=== PATIENT | female | born 1965 | race Caucasian/White ===

== ENCOUNTER 2019-06-10 10:22 | Emergency (ER) | payer OTHER, SELFPAY ==
[2019-06-10 10:31] VITALS: BP 118/58; PULSE 52; RESP 16; TEMP 36.8; O2SAT 99; BMI 28.2
--- NOTE | 2019-06-10 11:15 | DI.CT.S_ITS ---
PROCEDURE: CT ABDOMEN PELVIS W CON INDICATIONS: LLQ, RLQ, and RUQ tenderness worsening x 1 week TECHNIQUE: After the administration of oral and intravenous contrast, 5 mm thick sections acquired from the diaphragms to the symphysis. 5 mm thick coronal and sagittal reformats were performed. For radiation dose reduction, the following was used: automated exposure control, adjustment of mA and/or kV according to patient size. COMPARISON: [facility], , ABDOMEN COMPLETE, 03/28/2015, 9:44. FINDINGS: Image quality: Diagnostic. ABDOMEN: Lung bases: Lung bases are clear. Heart size is normal. Solid organs: The liver is measuring within the upper limits of normal for size. No focal liver lesions are evident. The gallbladder is not distended or definitely inflamed. There is no intrahepatic or extrahepatic biliary dilatation. The pancreas is within normal limits. The spleen is enlarged and measures up to 15.3 cm in craniocaudal dimension. The kidneys are normal in size. There is no hydronephrosis. The adrenals are unremarkable. Peritoneum and bowel: The stomach is unremarkable. The small bowel loops are nondilated. Moderate residual stool is seen within the proximal colon. What is felt to represent the appendix is normal in size. There is no free fluid, loculated fluid collection or free air. Nodes and vessels: No retroperitoneal or mesenteric adenopathy. Aorta and inferior vena cava are normal in caliber. Aortic and iliac artery atherosclerosis is present. No aneurysms or occlusions. Bones: No acute fractures or suspicious osseous lesions are identified. Moderate to severe degenerative changes of the lumbar spine are present. PELVIS: Genitourinary: Bladder wall thickness is normal. The uterus appears to be surgically absent. The ovaries are not definitely seen and may either be atrophic or surgically absent. Miscellaneous: No inguinal hernias or adenopathy. There may be a trace amount of free fluid within the pelvis. No loculated fluid collections or free air is evident. Bones: No suspicious bony lesions. No acute pelvic fractures are evident. IMPRESSION: 1. No acute process is evident within the abdomen or pelvis. 2. Moderate splenomegaly is of uncertain etiology. Clinical correlation is recommended to exclude a potential infiltrative process. 3. Borderline hepatomegaly. 4. Possible mild constipation. No bowel obstruction. Dictated by: Hilario Roa M.D. on 06/10/2019 at 12:26 Approved by: Hilario Roa M.D. on 06/10/2019 at 12:30
--- NOTE | 2019-06-10 11:17 | DI.RAD.S_ITS ---
PROCEDURE: XR CHEST 1V INDICATIONS: Shortness of breath TECHNIQUE: One view of the chest was acquired. COMPARISON: None. FINDINGS: Surgical changes and devices: None. Lungs and pleura: Lungs are clear. No pleural effusions or pneumothorax. Mediastinum: Mediastinal contours appear normal. Heart size is normal. Bones and chest wall: No suspicious bony lesions. Overlying soft tissues appear unremarkable. IMPRESSION: No acute cardiopulmonary abnormalities or focal airspace disease. Dictated by: Darek Bowie M.D. on 06/10/2019 at 11:52 Approved by: Darek Bowie M.D. on 06/10/2019 at 11:52
--- NOTE | 2019-06-10 11:26 | ED_ITS ---
HPI - Female Genitourinary <Joanie SainzGEOFF - Last Filed: 06/10/19 22:36> General Chief complaint: Urogenital-Female Stated complaint: upper left abdominal pain Time Seen by Provider: 06/10/19 10:56 Source: patient Mode of arrival: Ambulatory History of Present Illness HPI Narrative: 53-year-old female with a history of hypertension, diabetes, esophageal ulcer, presents emergency department complaining of abdominal pain that has been worsening over the past week. She states she was initially seen for a urinary tract infection and treated with Macrobid last week. She states he had been having dysuria, frequency, blood in urine, and abdominal pain for over a month. However, patient states she now has right lower quadrant, left lower quadrant, and right upper quadrant abdominal pain. She also has lower lumbar pain that has developed over the past 24 hours. Patient states she also has intermittent shortness of breath that occurs with nausea, this has been occurring over the past few weeks. She denies any aggravating or alleviating symptoms to her shortness of breath such as activity, or other concerns. Patient states she previously smoked for 20 years, quit 10 years ago, and last month started smoking again, she states she smokes about half a pack a day.She reports associated nausea. She denies vomiting, diarrhea, fevers, constipation, chest pain, dizziness, or other concerns. Related Data Home Medications Medication Instructions Recorded Confirmed alprazolam 0.5 mg PO QPM 06/10/19 06/10/19 amlodipine 5 mg PO QPM 06/10/19 06/10/19 citalopram 40 mg PO DAILY 06/10/19 06/10/19 gabapentin 1,200 mg PO QAM 06/10/19 06/10/19 gabapentin 1,800 mg PO BEDTIME 06/10/19 06/10/19 levothyroxine 175 mcg PO DAILY 06/10/19 06/10/19 metformin 500 mg PO BID 06/10/19 06/10/19 methocarbamol 500 mg PO Q4H PRN 06/10/19 06/10/19 metoprolol tartrate 100 mg PO BID 06/10/19 06/10/19 nitrofurantoin monohyd/m-cryst 100 mg PO BID 06/10/19 06/10/19 pantoprazole 40 mg PO DAILY 06/10/19 06/10/19 triamterene-hydrochlorothiazid 1 tab PO DAILY 06/10/19 06/10/19 zolpidem 10 mg PO BEDTIME 06/10/19 06/10/19 Previous Rx's Medication Instructions Recorded cephalexin 500 mg PO BID 14 Days #28 cap 06/10/19 ondansetron 4 mg PO Q8H #10 tab 06/10/19 tramadol 50 mg PO Q8H PRN #10 tab 06/10/19 Allergies Allergy/AdvReac Type Severity Reaction Status Date / Time Penicillins Allergy Verified 06/10/19 10:30 Review of Systems <GEOFF Gonzalez - Last Filed: 06/10/19 22:36> Review of Systems Narrative: REVIEW OF SYSTEMS: GENERAL: Denies fever, chills, malaise, or wt. loss. HENT: No head trauma, sore throat, or dysphagia. EYES: No loss of vision, double vision, eye pain, or irritation. CARDIOVASCULAR: No chest pain, palpitations, or orthopnea. RESPIRATORY: No shortness of breath or cough. GASTROINTESTINAL: Complains of abdominal pain, see HPI GENITOURINARY: Complains of dysuria, see HPI. MUSCULOSKELETAL: No pain, weakness, or trauma. INTEGUMENTARY: No rash, lesions, or pruritus. NEURO: No numbness, tingling, memory loss, confusion, or headaches. PSYCH: No behavior or mood changes. Patient History <GEOFF Gonzalez - Last Filed: 06/10/19 22:36> Medical History Hypertension (Acute) tobacco type: cigarettes Exam <GEOFF Gonzalez - Last Filed: 06/10/19 22:36> Initial Vital Signs Initial Vital Signs: Vital Signs Temperature 98.3 F 06/10/19 10:31 Pulse Rate 52 L 06/10/19 10:31 Respiratory Rate 16 06/10/19 10:31 Blood Pressure 118/58 L 06/10/19 10:31 Pulse Oximetry 99 06/10/19 10:31 PHYSICAL EXAMINATION: GENERAL: Well groomed, alert, and cooperative. Answers questions promptly and appropriately. Vital signs noted. HENT: Normocephalic, atraumatic. Hearing intact. Oral mucosa is pink and moist. Oropharynx without erythema EYES: PERRLA. conjunctiva pink, sclera white, no periorbital swelling. CARDIOVASCULAR: S1 and S2 sounds normal. Regular rate and rhythm, no murmurs, clicks, or bruits. No pedal edema. RESPIRATORY: Normal respiratory rate, trachea midline, airway patent. No stridor, nasal flaring or accessory muscle use. Lungs are clear in all yskes without wheeze, rhonchi, or crackles. GASTROINTESTINAL: Bowel sounds normoactive. Abdomen is soft, tenderness to left lower quadrant, right lower quadrant, and right upper quadrant pain. Negative Marco A sign. No rebound tenderness No organomegaly, no palpable masses. GENITALURINARY: Bilateral flank tenderness. MUSCULOSKELETAL: Normal gait and coordination. Equal tone and mass bilaterally. EXTREMITIES: CMS intact, no pedal edema. SKIN: Warm, dry, soft, appropriate color for ethnicity. No lesions, rashes, or wounds to visualized areas. NEURO: Alert and Oriented X 3. Good coordination. No ataxia, or sensory deficits, or cognitive issues. PSYCH: Appropriate affect and mood. <Hernán Suero MD - Last Filed: 06/11/19 11:20> Initial Vital Signs Initial Vital Signs: Vital Signs Temperature 98.3 F 06/10/19 10:31 Pulse Rate 52 L 06/10/19 10:31 Respiratory Rate 16 06/10/19 10:31 Blood Pressure 118/58 L 06/10/19 10:31 Pulse Oximetry 99 06/10/19 10:31 Course <GEOFF Gonzalez - Last Filed: 06/10/19 22:36> Course Course Narrative: Patient reported improved symptoms after administration of fluids and pain medication. Orders Ordered: Discontinued Medications Sodium Chloride (Normal Saline 0.9%) 1,000 mls @ 1,000 mls/hr IV BOLUS ONE Stop: 06/10/19 12:15 Last Infusion: 06/10/19 14:18 Dose: 0 mls/hr Documented by: Admin: 06/10/19 11:50 Dose: 1,000 mls/hr Documented by: JANA Ketorolac Tromethamine (Toradol) 30 mg IV NOW ONE Stop: 06/10/19 13:39 Last Admin: 06/10/19 13:48 Dose: 30 mg Documented by: MEISENB Vital Signs Vital signs: Vital Signs - 8 hr 06/10/19 10:31 06/10/19 11:54 Temperature 98.3 F Pulse Rate 52 L 56 L Respiratory Rate 16 18 Blood Pressure 118/58 L Blood Pressure [Right Arm] 127/63 Pulse Oximetry 99 98 <Hernán Suero MD - Last Filed: 06/11/19 11:20> Orders Ordered: Discontinued Medications Sodium Chloride (Normal Saline 0.9%) 1,000 mls @ 1,000 mls/hr IV BOLUS ONE Stop: 06/10/19 12:15 Last Infusion: 06/10/19 14:18 Dose: 0 mls/hr Documented by: GRADYSENDanny Admin: 06/10/19 11:50 Dose: 1,000 mls/hr Documented by: JANA Ketorolac Tromethamine (Toradol) 30 mg IV NOW ONE Stop: 06/10/19 13:39 Last Admin: 06/10/19 13:48 Dose: 30 mg Documented by: JANA Vital Signs Vital signs: Vital Signs - 8 hr 06/10/19 10:31 06/10/19 11:54 Temperature 98.3 F Pulse Rate 52 L 56 L Respiratory Rate 16 18 Blood Pressure 118/58 L Blood Pressure [Right Arm] 127/63 Pulse Oximetry 99 98 MDM - Female Genitourinary <GEOFF Gonzalez - Last Filed: 06/10/19 22:36> Medical Records Attestation: I reviewed the patient's medical records. Lab Data Attestation: I reviewed the patient's lab results. Result diagrams: 06/10/19 12:10 06/10/19 11:34 Labs: Lab Results 06/10/19 06/10/19 06/10/19 Range/Units 11:34 11:34 11:34 WBC (4.5-11.0) X10^3/uL RBC (4.0-5.2) X10^6/uL Hgb (12.0-16.0) g/dL Hct (36-46) % MCV (80-100) fL MCH (26-34) PG MCHC (30-36) % RDW (11.6-14.8) % Plt Count (150-400) X10^3/uL Neut % (Auto) (50-75) % Lymph % (Auto) (25-40) % [place] % (Auto) (3-14) % Eos % (Auto) (2-4) % Baso % (Auto) (0-2) % Neut # (Auto) (9721-2910) /uL Lymph # (Auto) (1632-0507) /uL [place] # (Auto) (0-900) /uL Eos # (Auto) (0-450) /uL Baso # (Auto) (0-100) /uL PT 11.3 (10.1-12.7) SECONDS INR 1.0 (0.9-1.3) APTT 20 L (26.4-36.2) SECONDS Sodium 138 (137-145) mmol/L Potassium 3.6 (3.4-5.1) mmol/L Chloride 99 (98-107) mmol/L Carbon Dioxide 30 (22-32) mmol/L BUN 20 H (7-17) mg/dL Creatinine 0.80 (0.52-1.04) mg/dL Estimated GFR > 60.0 (>60) mL/min BUN/Creatinine Ratio 25.0 H (6-22) Glucose 96 (70-100) mg/dL Calcium 10.2 (8.4-10.2) mg/dL Total Bilirubin 0.7 (0.2-1.3) mg/dL AST 35 (14-36) IU/L ALT 23 (<35) IU/L Alkaline Phosphatase 55 (38-126) U/L Total Creatine Kinase 52 (30-135) U/L CK-MB (CK-2) TNP CK-MB (CK-2) Rel Index TNP Troponin I < 0.012 (0.01-0.034) ng/mL Total Protein 8.7 H (6.3-8.2) g/dL Albumin 4.8 (3.5-5.0) g/dL Globulin 3.9 (1.7-4.1) g/dL Albumin/Globulin Ratio 1.2 (1.0-2.8) Lipase 144 (23-300) U/L Urine Color Urine Appearance Urine pH (4.5-8.0) Ur Specific [place] (1.000-1.035) Urine Protein (Negative) Urine Glucose (UA) (Negative) g/dL Urine Ketones (NEGATIVE) Urine Occult Blood (Negative) Urine Nitrate (Negative) Urine Bilirubin (NEGATIVE) Urine Urobilinogen (0.2) E.U./dL Ur Leukocyte Esterase (NEGATIVE) Urine RBC (0-5/HPF) Urine WBC (0-5/HPF) Ur Squamous Epith Cells (0-5/HPF) Urine Bacteria (None) Ur Culture Indicated? 06/10/19 06/10/19 Range/Units 11:34 12:10 WBC 4.8 (4.5-11.0) X10^3/uL RBC 4.30 (4.0-5.2) X10^6/uL Hgb 13.2 (12.0-16.0) g/dL Hct 38.4 (36-46) % MCV 89.4 (80-100) fL MCH 30.6 (26-34) PG MCHC 34.3 (30-36) % RDW 14.3 (11.6-14.8) % Plt Count 161 (150-400) X10^3/uL Neut % (Auto) 46.6 L (50-75) % Lymph % (Auto) 26.6 (25-40) % [place] % (Auto) 7.4 (3-14) % Eos % (Auto) 18.5 H (2-4) % Baso % (Auto) 0.9 (0-2) % Neut # (Auto) 2200 (5035-3580) /uL Lymph # (Auto) 1300 (8076-7602) /uL [place] # (Auto) 400 (0-900) /uL Eos # (Auto) 900 H (0-450) /uL Baso # (Auto) 0 (0-100) /uL PT (10.1-12.7) SECONDS INR (0.9-1.3) APTT (26.4-36.2) SECONDS Sodium (137-145) mmol/L Potassium (3.4-5.1) mmol/L Chloride (98-107) mmol/L Carbon Dioxide (22-32) mmol/L BUN (7-17) mg/dL Creatinine (0.52-1.04) mg/dL Estimated GFR (>60) mL/min BUN/Creatinine Ratio (6-22) Glucose (70-100) mg/dL Calcium (8.4-10.2) mg/dL Total Bilirubin (0.2-1.3) mg/dL AST (14-36) IU/L ALT (<35) IU/L Alkaline Phosphatase (38-126) U/L Total Creatine Kinase (30-135) U/L CK-MB (CK-2) CK-MB (CK-2) Rel Index Troponin I (0.01-0.034) ng/mL Total Protein (6.3-8.2) g/dL Albumin (3.5-5.0) g/dL Globulin (1.7-4.1) g/dL Albumin/Globulin Ratio (1.0-2.8) Lipase (23-300) U/L Urine Color Yellow Urine Appearance Clear Urine pH 6.5 (4.5-8.0) Ur Specific [place] 1.010 (1.000-1.035) Urine Protein Negative (Negative) Urine Glucose (UA) Negative (Negative) g/dL Urine Ketones 1+ H (NEGATIVE) Urine Occult Blood Negative (Negative) Urine Nitrate Negative (Negative) Urine Bilirubin Negative (NEGATIVE) Urine Urobilinogen 0.2 (0.2) E.U./dL Ur Leukocyte Esterase Negative (NEGATIVE) Urine RBC 0-1/hpf (0-5/HPF) Urine WBC 1-5/hpf (0-5/HPF) Ur Squamous Epith Cells 0-1 /hpf (0-5/HPF) Urine Bacteria Few (2-10) H (None) Ur Culture Indicated? Cult not indicated Point of Care Testing Test Results Negative Urine Dip Bedside Urine Glucose Negative Bedside Urine Bilirubin - Negative Bedside Urine Ketone + 15 Urine Specific [place] 1.015 Bedside Urine Occult Blood - Negative Bedside Urine pH 6.0 Bedside Urine Protein - Negative Bedside Urine Urobilinogen - Negative Bedside Urine Nitrite - Negative Bedside Urine Leukocytes +/- 15 Esterase Imaging Data Chest x-ray: Radiologist's Impression: [address] [address] XRay Report Signed Patient: Olga Rob KMR#: [id number] : 1965Acct:[id number] Age/Sex: 53 / FDate of Service: 06/10/19 Loc: ED Accession Number: [id number] Procedure: XR chest 1V Ordering Provider: Joanie Sainz PROCEDURE: XR CHEST 1V INDICATIONS: Shortness of breath TECHNIQUE: One view of the chest was acquired. COMPARISON: None. FINDINGS: Surgical changes and devices: None. Lungs and pleura: Lungs are clear. No pleural effusions or pneumothorax. Mediastinum: Mediastinal contours appear normal. Heart size is normal. Bones and chest wall: No suspicious bony lesions. Overlying soft tissues appear unremarkable. IMPRESSION: No acute cardiopulmonary abnormalities or focal airspace disease. Dictated by: Darek Bowie M.D. on 06/10/2019 at 11:52 Approved by: Darek Bowie M.D. on 06/10/2019 at 11:52 CT scan - abdomen/pelvis: Radiologist's Impression: [place] [address] CT Scan Report Signed Patient: Olga Rob KMR#: [id number] : 1965Acct:[id number] Age/Sex: 53 / FDate of Service: 06/10/19 Loc: ED Accession Number: [id number] Procedure: CT abdomen pelvis w con Ordering Provider: Joanie Sainz PROCEDURE: CT ABDOMEN PELVIS W CON INDICATIONS: LLQ, RLQ, and RUQ tenderness worsening x 1 week TECHNIQUE: After the administration of oral and intravenous contrast, 5 mm thick sections acquired from the diaphragms to the symphysis. 5 mm thick coronal and sagittal reformats were performed. For radiation dose reduction, the following was used: automated exposure control, adjustment of mA and/or kV according to patient size. COMPARISON: [facility], , ABDOMEN COMPLETE, 03/28/2015, 9:44. FINDINGS: Image quality: Diagnostic. ABDOMEN: Lung bases: Lung bases are clear. Heart size is normal. Solid organs: The liver is measuring within the upper limits of normal for size. No focal liver lesions are evident. The gallbladder is not distended or definitely inflamed. There is no intrahepatic or extrahepatic biliary dilatation. The pancreas is within normal limits. The spleen is enlarged and measures up to 15.3 cm in craniocaudal dimension. The kidneys are normal in size. There is no hydronephrosis. The adrenals are unremarkable. Peritoneum and bowel: The stomach is unremarkable. The small bowel loops are nondilated. Moderate residual stool is seen within the proximal colon. What is felt to represent the appendix is normal in size. There is no free fluid, loculated fluid collection or free air. Nodes and vessels: No retroperitoneal or mesenteric adenopathy. Aorta and inferior vena cava are normal in caliber. Aortic and iliac artery atherosclerosis is present. No aneurysms or occlusions. Bones: No acute fractures or suspicious osseous lesions are identified. Moderate to severe degenerative changes of the lumbar spine are present. PELVIS: Genitourinary: Bladder wall thickness is normal. The uterus appears to be surgically absent. The ovaries are not definitely seen and may either be atrophic or surgically absent. Miscellaneous: No inguinal hernias or adenopathy. There may be a trace amount of free fluid within the pelvis. No loculated fluid collections or free air is evident. Bones: No suspicious bony lesions. No acute pelvic fractures are evident. IMPRESSION: 1. No acute process is evident within the abdomen or pelvis. 2. Moderate splenomegaly is of uncertain etiology. Clinical correlation is recommended to exclude a potential infiltrative process. 3. Borderline hepatomegaly. 4. Possible mild constipation. No bowel obstruction. Dictated by: Hilario Roa M.D. on 06/10/2019 at 12:26 Approved by: Hilario Roa M.D. on 06/10/2019 at 12:30 [facility] Narrative Medical decision making narrative: Presents to emergency department for complains of flank pain after being treated for a UTI. Decreased concern for renal calculi due to CT scan without visualization of renal calculi, kidney stones, and no blood in urine. Less likely acute abdominal etiology due to CT scan without acute changes, laboratory work within normal limits, and improved pain after administration of fluids and Toradol. I am concerned that patient may have developed pyelonephritis due to flank pain and worsening symptoms from her UTI. Patient was originally given Macrobid, today patient was switched to cephalexin to cover for pyelonephritis. Less concern for sepsis due to lack of systemic symptoms such as fever or tachycardia. Patient was encouraged to follow up with her primary care provider in 1-2 weeks for further evaluation. Return precautions given. <Hernán Suero MD - Last Filed: 06/11/19 11:20> Lab Data Labs: Lab Results 06/10/19 06/10/19 06/10/19 Range/Units 11:34 11:34 11:34 WBC (4.5-11.0) X10^3/uL RBC (4.0-5.2) X10^6/uL Hgb (12.0-16.0) g/dL Hct (36-46) % MCV (80-100) fL MCH (26-34) PG MCHC (30-36) % RDW (11.6-14.8) % Plt Count (150-400) X10^3/uL Neut % (Auto) (50-75) % Lymph % (Auto) (25-40) % [place] % (Auto) (3-14) % Eos % (Auto) (2-4) % Baso % (Auto) (0-2) % Neut # (Auto) (0265-4823) /uL Lymph # (Auto) (7095-3148) /uL [place] # (Auto) (0-900) /uL Eos # (Auto) (0-450) /uL Baso # (Auto) (0-100) /uL PT 11.3 (10.1-12.7) SECONDS INR 1.0 (0.9-1.3) APTT 20 L (26.4-36.2) SECONDS Sodium 138 (137-145) mmol/L Potassium 3.6 (3.4-5.1) mmol/L Chloride 99 (98-107) mmol/L Carbon Dioxide 30 (22-32) mmol/L BUN 20 H (7-17) mg/dL Creatinine 0.80 (0.52-1.04) mg/dL Estimated GFR > 60.0 (>60) mL/min BUN/Creatinine Ratio 25.0 H (6-22) Glucose 96 (70-100) mg/dL Calcium 10.2 (8.4-10.2) mg/dL Total Bilirubin 0.7 (0.2-1.3) mg/dL AST 35 (14-36) IU/L ALT 23 (<35) IU/L Alkaline Phosphatase 55 (38-126) U/L Total Creatine Kinase 52 (30-135) U/L CK-MB (CK-2) TNP CK-MB (CK-2) Rel Index TNP Troponin I < 0.012 (0.01-0.034) ng/mL Total Protein 8.7 H (6.3-8.2) g/dL Albumin 4.8 (3.5-5.0) g/dL Globulin 3.9 (1.7-4.1) g/dL Albumin/Globulin Ratio 1.2 (1.0-2.8) Lipase 144 (23-300) U/L Urine Color Urine Appearance Urine pH (4.5-8.0) Ur Specific [place] (1.000-1.035) Urine Protein (Negative) Urine Glucose (UA) (Negative) g/dL Urine Ketones (NEGATIVE) Urine Occult Blood (Negative) Urine Nitrate (Negative) Urine Bilirubin (NEGATIVE) Urine Urobilinogen (0.2) E.U./dL Ur Leukocyte Esterase (NEGATIVE) Urine RBC (0-5/HPF) Urine WBC (0-5/HPF) Ur Squamous Epith Cells (0-5/HPF) Urine Bacteria (None) Ur Culture Indicated? 06/10/19 06/10/19 Range/Units 11:34 12:10 WBC 4.8 (4.5-11.0) X10^3/uL RBC 4.30 (4.0-5.2) X10^6/uL Hgb 13.2 (12.0-16.0) g/dL Hct 38.4 (36-46) % MCV 89.4 (80-100) fL MCH 30.6 (26-34) PG MCHC 34.3 (30-36) % RDW 14.3 (11.6-14.8) % Plt Count 161 (150-400) X10^3/uL Neut % (Auto) 46.6 L (50-75) % Lymph % (Auto) 26.6 (25-40) % [place] % (Auto) 7.4 (3-14) % Eos % (Auto) 18.5 H (2-4) % Baso % (Auto) 0.9 (0-2) % Neut # (Auto) 2200 (1349-4865) /uL Lymph # (Auto) 1300 (1838-4113) /uL [place] # (Auto) 400 (0-900) /uL Eos # (Auto) 900 H (0-450) /uL Baso # (Auto) 0 (0-100) /uL PT (10.1-12.7) SECONDS INR (0.9-1.3) APTT (26.4-36.2) SECONDS Sodium (137-145) mmol/L Potassium (3.4-5.1) mmol/L Chloride (98-107) mmol/L Carbon Dioxide (22-32) mmol/L BUN (7-17) mg/dL Creatinine (0.52-1.04) mg/dL Estimated GFR (>60) mL/min BUN/Creatinine Ratio (6-22) Glucose (70-100) mg/dL Calcium (8.4-10.2) mg/dL Total Bilirubin (0.2-1.3) mg/dL AST (14-36) IU/L ALT (<35) IU/L Alkaline Phosphatase (38-126) U/L Total Creatine Kinase (30-135) U/L CK-MB (CK-2) CK-MB (CK-2) Rel Index Troponin I (0.01-0.034) ng/mL Total Protein (6.3-8.2) g/dL Albumin (3.5-5.0) g/dL Globulin (1.7-4.1) g/dL Albumin/Globulin Ratio (1.0-2.8) Lipase (23-300) U/L Urine Color Yellow Urine Appearance Clear Urine pH 6.5 (4.5-8.0) Ur Specific [place] 1.010 (1.000-1.035) Urine Protein Negative (Negative) Urine Glucose (UA) Negative (Negative) g/dL Urine Ketones 1+ H (NEGATIVE) Urine Occult Blood Negative (Negative) Urine Nitrate Negative (Negative) Urine Bilirubin Negative (NEGATIVE) Urine Urobilinogen 0.2 (0.2) E.U./dL Ur Leukocyte Esterase Negative (NEGATIVE) Urine RBC 0-1/hpf (0-5/HPF) Urine WBC 1-5/hpf (0-5/HPF) Ur Squamous Epith Cells 0-1 /hpf (0-5/HPF) Urine Bacteria Few (2-10) H (None) Ur Culture Indicated? Cult not indicated Point of Care Testing Test Results Negative Urine Dip Bedside Urine Glucose Negative Bedside Urine Bilirubin - Negative Bedside Urine Ketone + 15 Urine Specific [place] 1.015 Bedside Urine Occult Blood - Negative Bedside Urine pH 6.0 Bedside Urine Protein - Negative Bedside Urine Urobilinogen - Negative Bedside Urine Nitrite - Negative Bedside Urine Leukocytes +/- 15 Esterase Discharge Plan Departure Patient Disposition: Home Clinical Impression: Pyelonephritis Discharge Date/Time: 06/10/19 14:59 Instructions: DI for Kidney Infection Activity Restrictions/Additional Instructions: Thank you for entrusting me with your care today. As discussed, your CT shows a hepatospleenomegaly. Your labs are non-remarkable. However, your urine showed possible infection. And concerned that this infection may have spread to your kidneys. Please discontinue your current antibiotic, nitrofurantoin. Please start the antibiotic I prescribed each day. I have also prescribed you medication, and have given you tramadol instead of toradol as Toradol is excreted through your kidneys. You have been prescribed a narcotic medication, this medication can make you drowsy. Do not drive while using this medication or perform activities that require mental alertness. These medications can also make you constipated, please use [id number] docusate sodium as needed for constipation. Make an appointment with your primary care provider in 1 week for re-evaluation. Return emergency department for new or worsening symptoms such as high fevers, uncontrollable vomiting, chest pain, shortness of breath or other concerns. Prescriptions: New cephalexin 500 mg capsule 500 mg PO BID 14 Days Qty: 28 RF: 0 ondansetron 4 mg tablet,disintegrating 4 mg PO Q8H Qty: 10 RF: 0 tramadol 50 mg tablet 50 mg PO Q8H PRN (Reason: pain) Qty: 10 RF: 0 No Action methocarbamol 500 mg tablet 500 mg PO Q4H PRN (Reason: Spasms) RF: 0 metformin 500 mg tablet 500 mg PO BID RF: 0 levothyroxine 175 mcg tablet 175 mcg PO DAILY RF: 0 citalopram 40 mg tablet 40 mg PO DAILY RF: 0 metoprolol tartrate 100 mg tablet 100 mg PO BID RF: 0 amlodipine 5 mg tablet 5 mg PO QPM RF: 0 alprazolam 0.25 mg tablet 0.5 mg PO QPM RF: 0 pantoprazole 40 mg tablet,delayed release (DR/EC) 40 mg PO DAILY RF: 0 triamterene-hydrochlorothiazid 37.5-25 mg tablet 1 tab PO DAILY RF: 0 zolpidem 10 mg tablet 10 mg PO BEDTIME RF: 0 nitrofurantoin monohyd/m-cryst 100 mg capsule 100 mg PO BID RF: 0 gabapentin 600 mg Tablet 1,800 mg PO BEDTIME RF: 0 gabapentin 600 mg Tablet 1,200 mg PO QAM RF: 0 Referrals: Curt Alcantar MD [Primary Care Provider] -
[2019-06-10] MEDS: SODIUM CHLORIDE 0.9% 1,000 ML 1000 ML IV (11:50)
[2019-06-10 11:54] VITALS: BP 127/63; PULSE 56; RESP 18; O2SAT 98
[2019-06-10 12:03] LABS: PTT Partial Thromboplastin Tim 20 SECONDS (26.4-36.2)
[2019-06-10 12:06] LABS: Alanine Aminotransferase 23 IU/L (<35); Albumin 4.8 g/dL (3.5-5.0); Albumin Globulin Ratio 1.2 (1.0-2.8); Alkaline Phosphatase 55 U/L (38-126); Aspartate Aminotransferase 35 IU/L (14-36); Bilirubin Total 0.7 mg/dL (0.2-1.3); Blood Urea Nitrogen 20 mg/dL (7-17); Calcium 10.2 mg/dL (8.4-10.2); Carbon Dioxide 30 mmol/L (22-32); Chloride 99 mmol/L (98-107); Creatine Kinase 52 U/L (30-135); Estimated Glomerular Filt Rate > 60.0 mL/min (>60); Globulin 3.9 g/dL (1.7-4.1); Glucose 96 mg/dL (70-100); HEMOLYSIS < 15 (0-50); Lipase 144 U/L (23-300); Potassium 3.6 mmol/L (3.4-5.1); Prothrombin Time 11.3 SECONDS (10.1-12.7); Sodium 138 mmol/L (137-145); Total Protein 8.7 g/dL (6.3-8.2)
[2019-06-10 12:17] LABS: Troponin I < 0.012 ng/mL (0.01-0.034)
[2019-06-10 12:18] LABS: Add Manual Diff / Slide Review NO; Basophils Absolute Auto 0 /uL (0-100); Basophils Percent Auto 0.9 % (0-2); Eosinophils Absolute Auto 900 /uL (0-450); Eosinophils Percent Auto 18.5 % (2-4); Hematocrit 38.4 % (36-46); Hemoglobin 13.2 g/dL (12.0-16.0); Lymphocytes Absolute Auto 1300 /uL (1100-4500); Lymphocytes Percent Auto 26.6 % (25-40); Mean Corpuscular HGB Conc 34.3 % (30-36); Mean Corpuscular Hemoglobin 30.6 PG (26-34); Mean Corpuscular Volume 89.4 fL (80-100); Monocytes Absolute Auto 400 /uL (0-900); Monocytes Percent Auto 7.4 % (3-14); Neutrophils Absolute Auto 2200 /uL (1500-7000); Neutrophils Percent Auto 46.6 % (50-75); Platelet Count 161 X10^3/uL (150-400); Red Cell Distribution Width 14.3 % (11.6-14.8); White Blood Cell Count 4.8 X10^3/uL (4.5-11.0)
[2019-06-10] MEDS: KETOROLAC 60 MG/2 ML VIAL 30 MG IV (13:48)
[2019-06-10 13:49] VITALS: BP 129/61; PULSE 67; RESP 18; TEMP 37.2; O2SAT 97
[2019-06-10 14:29] LABS: Appearance Urine UA CLEAR; Bilirubin Urine UA NEGATIVE (NEGATIVE); Color Urine UA YELLOW; Glucose Urine UA NEGATIVE (Negative); Ketones Urine UA 1+ (NEGATIVE); Leukocyte Esterase Urine UA NEGATIVE (NEGATIVE); Nitrite Urine UA NEGATIVE (Negative); Occult Blood Urine UA NEGATIVE (Negative); Protein Urine UA NEGATIVE (Negative); Urobilinogen Urine UA 0.2 E.U./dL (0.2)
[2019-06-10 14:49] LABS: pH Urine UA 6.5 (4.5-8.0)
[2019-06-10 14:50] LABS: Bacteria Urine Few (2-10); Culture Indicated Urine Cult Not Indicated; RBC Urine 0-1/HPF (0-5/HPF); Squamous Epithelial Cell Urine 0-1 /HPF (0-5/HPF); WBC Urine 1-5/HPF (0-5/HPF)
== END 2019-06-10 14:59 | disposition home or self-care (01) ==
PROVIDERS: Emergency Medicine; Emergency Provider Nurse Practitioner; Family Provider Family Medicine; PCP Family Medicine
DX: N12 Tubulo-interstitial nephritis, not specified as acute or chronic (principal); R16.1 Splenomegaly, not elsewhere classified; R10.9 Unspecified abdominal pain
CPT/HCPCS: 36415; 71045; 74177; 80053; 81001; 81003; 81025; 82550; 83690; 84484; 85025; 85610; 85730; 93005; 96361; 96374; 99284; 99285; J1885; Q9967

== ENCOUNTER 2019-06-15 14:14 | Emergency (ER) | payer OTHER, SELFPAY ==
[2019-06-15 14:31] VITALS: BP 115/73; PULSE 60; RESP 16; TEMP 36.2; O2SAT 100; BMI 29.0
[2019-06-15 15:36] VITALS: BP 137/68; PULSE 50; RESP 18; O2SAT 99
[2019-06-15 15:39] VITALS: BP 134/68; PULSE 52; O2SAT 100
[2019-06-15 15:40] LABS: Add Manual Diff / Slide Review NO; Basophils Absolute Auto 0 /uL (0-100); Basophils Percent Auto 0.2 % (0-2); Eosinophils Absolute Auto 1500 /uL (0-450); Eosinophils Percent Auto 18.2 % (2-4); Hematocrit 43.7 % (36-46); Hemoglobin 15.1 g/dL (12.0-16.0); Lymphocytes Absolute Auto 3300 /uL (1100-4500); Lymphocytes Percent Auto 39.5 % (25-40); Mean Corpuscular HGB Conc 34.5 % (30-36); Mean Corpuscular Hemoglobin 30.6 PG (26-34); Mean Corpuscular Volume 88.7 fL (80-100); Monocytes Absolute Auto 300 /uL (0-900); Monocytes Percent Auto 3.8 % (3-14); Neutrophils Absolute Auto 3200 /uL (1500-7000); Neutrophils Percent Auto 38.3 % (50-75); Platelet Count 250 X10^3/uL (150-400); Red Blood Cell Count 4.93 X10^6/uL (4.0-5.2); Red Cell Distribution Width 14.8 % (11.6-14.8); White Blood Cell Count 8.3 X10^3/uL (4.5-11.0)
[2019-06-15 15:47] LABS: Prothrombin Time 11.8 SECONDS (10.1-12.7)
[2019-06-15 15:49] LABS: PTT Partial Thromboplastin Tim 35 SECONDS (26.4-36.2)
[2019-06-15 15:51] LABS: Alanine Aminotransferase 26 IU/L (<35); Albumin Globulin Ratio 1.3 (1.0-2.8); Alkaline Phosphatase 69 U/L (38-126); Aspartate Aminotransferase 32 IU/L (14-36); BUN Creatinine Ratio 23.3 (6-22); Bilirubin Total 0.5 mg/dL (0.2-1.3); Blood Urea Nitrogen 14 mg/dL (7-17); Calcium 10.1 mg/dL (8.4-10.2); Carbon Dioxide 29 mmol/L (22-32); Chloride 99 mmol/L (98-107); Estimated Glomerular Filt Rate > 60.0 mL/min (>60); Globulin 3.8 g/dL (1.7-4.1); Glucose 91 mg/dL (70-100); HEMOLYSIS < 15 (0-50); Lipase 141 U/L (23-300); Potassium 3.8 mmol/L (3.4-5.1); Sodium 138 mmol/L (137-145); Total Protein 8.8 g/dL (6.3-8.2)
[2019-06-15 15:53] LABS: Bacteria Urine None Seen; RBC Urine None Seen (0-5/HPF); WBC Urine None Seen (0-5/HPF)
[2019-06-15] MEDS: KETOROLAC 60 MG/2 ML VIAL 15 MG IV (16:00)
[2019-06-15] MEDS: SODIUM CHLORIDE 0.9% 1,000 ML 150 ML IV (16:00)
[2019-06-15 16:01] LABS: Appearance Urine UA CLEAR; Bilirubin Urine UA NEGATIVE (NEGATIVE); Color Urine UA YELLOW; Glucose Urine UA NEGATIVE (Negative); Ketones Urine UA NEGATIVE (NEGATIVE); Leukocyte Esterase Urine UA NEGATIVE (NEGATIVE); Nitrite Urine UA NEGATIVE (Negative); Occult Blood Urine UA NEGATIVE (Negative); Protein Urine UA NEGATIVE (Negative); Urobilinogen Urine UA 0.2 E.U./dL (0.2)
[2019-06-15 16:06] VITALS: BP 145/76; PULSE 54; RESP 18; O2SAT 100
[2019-06-15 16:14] LABS: Culture Indicated Urine Cult Not Indicated; Urine Comments Microscopic Normal
--- NOTE | 2019-06-15 16:16 | DI.US.S_ITS ---
PROCEDURE: US ABDOMEN LIMITED INDICATIONS: LT QUADS PAIN, RECENT CT SHOWED SPLENOMEGALY TECHNIQUE: Real-time focused scanning was performed of the abdomen, with image documentation. COMPARISON: [facility], CT, CT ABDOMEN PELVIS [facility], 06/10/2019, 12:30. FINDINGS: The spleen is enlarged and measures 15.5 cm in craniocaudal dimension. No focal splenic lesions are evident. No perisplenic fluid collections or lacerations are identified. No fluid is seen within the left upper quadrant. The left kidney is normal in size and measures 11.9 cm in length. There is no hydronephrosis or shadowing nephrolithiasis. No cystic or solid renal lesions are appreciated. IMPRESSION: 1. Splenomegaly. 2. No free fluid within the left upper quadrant. Dictated by: Hilario Roa M.D. on 06/15/2019 at 16:23 Approved by: Hilario Roa M.D. on 06/15/2019 at 16:23
[2019-06-15 16:54] LABS: Lactate (Lactic Acid) 0.9 mmol/L (0.7-2.1)
[2019-06-15 17:18] LABS: Procalcitonin < 0.05 ng/mL (<0.5)
--- NOTE | 2019-06-15 17:44 | ED.ABDPAIN ---
HPI - Abdominal Pain <GEOFF Yang - Last Filed: 06/16/19 00:51> General Chief Complaint: Abdominal Pain Stated Complaint: abdominal pain around to back Time Seen by Provider: 06/15/19 15:20 Source: patient Mode of arrival: Ambulatory Limitations: no limitations History of Present Illness HPI narrative: This is a 53-year-old female, current smoker, who presents to ED with significant other with chief complain of bilateral lower back pain, left lower quadrant and left upper quadrant pain. Patient reports no change in characteristic of the pain since last visit. Patient was evaluated at [facility] 5 days ago and was discharged to home with pyelonephritis. Patient reports some chills and subjective fever. Patient has been having urinary symptoms such as dysuria, frequency, hematuria and abdominal pain over a month and initially was treated with Macrobid then which got changed out to Keflex for 14 day course 500 mg b.i.d. dose which patient is currently taking it at this time. Patient reports her discomfort is pretty constant and sharp in character. She has been hydrating well with water and cranberry juice. She reports decreased appetite and 3-4 episodes of diarrhea for last couple of days without blood in stool. Patient is not able to report aggravating or alleviating factors for this discomfort. She had not been taking any Tylenol or Motrin for discomfort and she states was told it is bad for my kidney. Patient did follow-up with her PCP this morning at [facility] with Dr. Alcantar and since patient's discomfort is not improving, she was referred to [facility] for re-evaluation. Patient was told during last visit incidental finding of enlarged spleen. Patient denies recent illness with sore throat or mononucleosis. Patient states she had fallen about 4 months ago and landed on her near left hip area on a radiator but had not follow up with this problem. Patient is wondering if this region is related to her spleen. Related Data Home Medications Medication Instructions Recorded Confirmed alprazolam 0.5 mg PO QPM 06/10/19 06/10/19 amlodipine 5 mg PO QPM 06/10/19 06/15/19 citalopram 40 mg PO DAILY 06/10/19 06/15/19 gabapentin 1,200 mg PO QAM 06/10/19 06/10/19 gabapentin 1,800 mg PO BEDTIME 06/10/19 06/10/19 levothyroxine 175 mcg PO DAILY 06/10/19 06/15/19 metformin 500 mg PO BID 06/10/19 06/15/19 methocarbamol 500 mg PO Q4H PRN 06/10/19 06/15/19 metoprolol tartrate 100 mg PO BID 06/10/19 06/15/19 nitrofurantoin monohyd/m-cryst 100 mg PO BID 06/10/19 06/15/19 pantoprazole 40 mg PO DAILY 06/10/19 06/15/19 triamterene-hydrochlorothiazid 1 tab PO DAILY 06/10/19 06/15/19 zolpidem 10 mg PO BEDTIME 06/10/19 06/15/19 Previous Rx's Medication Instructions Recorded cephalexin 500 mg PO BID 14 Days #28 cap 06/10/19 ondansetron 4 mg PO Q8H #10 tab 06/10/19 tramadol 50 mg PO Q8H PRN #10 tab 06/10/19 tramadol 50 mg PO Q12H PRN #7 tab 06/15/19 Allergies Allergy/AdvReac Type Severity Reaction Status Date / Time sulfamethoxazole Allergy Unknown unknown Unverified 06/15/19 22:40 [From Bactrim] trimethoprim [From Bactrim] Allergy Unknown unknown Unverified 06/15/19 22:40 Review of Systems <GEOFF Yang - Last Filed: 06/16/19 00:51> Review of Systems Narrative: General: Denies (+) subjective fever, (+) chills, fatigue, malaise, sweats. HEENT: Denies sinus pain, ear pain, sore throat, difficulty swallowing, dizziness. Respiratory: Denies dyspnea, cough, wheezing, hemoptysis, sputum. Cardiovascular: Denies chest pain, palpitations, orthopnea, edema. Gastrointestinal: See HPI : Denies dysuria, frequency, incontinence, hematuria, urinary retention. Musculoskeletal: Denies weakness, joint pain or bony pain. Reports bilateral low back pain. Skin: Denies rash, skin lesions, or other. Neurologic: Denies weakness, headache, numbness, change in speech, confusion, seizures, incoordination. Psychiatric: No concerning psychosocial issues. 12-point review of systems is negative except for those stated above. Patient History <GEOFF Yang - Last Filed: 06/16/19 00:51> Medical History Anxiety (Acute) Chronic neck pain (Acute) Depression (Acute) Hypertension (Acute) Hypothyroidism (Acute) Pre-diabetes (Acute) tobacco type: cigarettes Exam <GEOFF Yang - Last Filed: 06/16/19 00:51> Narrative Exam Narrative: GEN: Alert, oriented x 3, well appearing and nourished, and in no acute distress. Head: Normal cephalic, atraumatic. No scalp or temporal tenderness, palpable mass or rash. EYES: Pupils are equal, round, and reactive to light and accommodation. Extraocular muscles are intact bilaterally. There is no subconjunctival hemorrhage, exudate and sclera non-icteric. ENT: Bilateral auditory canals and tympanic membranes clear. Hearing grossly intact. Nose without bleeding, purulent discharge or deviation. Facial sinuses nontender to palpate. Mucous membrane moist, no mucosal lesion. Throat without erythema, tonsillar hypertrophy or exudate. Uvula in midline, airway patent. Neck: Trachea in midline. No JVD, non-tender without lymphadenopathy. No masses or thyroid megaly. Supple, non-tender and no meningeal signs. CARDIAC: Normal regular rate and rhythm without murmurs, gallops, or rubs. No chest wall tenderness. No peripheral edema, cyanosis or pallor. Capillary refill is less than 2 seconds. RESPIRATORY: Lungs are clear to auscultate bilaterally. No cough, wheezes, rales, or rhonchi. No stridor, respiratory distress, increase work of breathing, or accessary muscle used. ABD: Abdomen soft, TTP in left upper and lower quadrants and non-distended. No guarding or rebound tenderness to palpate. Bowel sounds are normal in all 4 quadrants. There is no palpable masses or organomegaly. EXT: Full painless ROM of all extremities with no loss of sensation, strength, effusion or edema. SKIN: Warm, dry, normal color for patient. No erythema, lesions or rash over visible areas. BACK: Tender to percuss in bilateral flank without deformity or crepitance. NEUROLOGICAL: Alert and oriented to place, time and person. Sensation and motor function intact bilaterally. No facial droops, dysphasia. PSYCHIATRIC: Good judgement and reason, without hallucinations, abnormal affect or abnormal behaviors during the examination. Initial Vital Signs Initial Vital Signs: Vital Signs Temperature 97.1 F L 06/15/19 14:31 Pulse Rate 60 06/15/19 14:31 Respiratory Rate 16 06/15/19 14:31 Blood Pressure 115/73 06/15/19 14:31 Pulse Oximetry 100 06/15/19 14:31 <Benjamin Frost DO - Last Filed: 06/16/19 18:26> Initial Vital Signs Initial Vital Signs: Vital Signs Temperature 97.1 F L 06/15/19 14:31 Pulse Rate 60 06/15/19 14:31 Respiratory Rate 16 06/15/19 14:31 Blood Pressure 115/73 06/15/19 14:31 Pulse Oximetry 100 06/15/19 14:31 Scores <GEOFF Yang - Last Filed: 06/16/19 00:51> GCS Freddy coma scale eye opening: Spontaneous [place] coma scale verbal response: Orientated [place] coma scale motor response: Obey commands Freddy coma scale total score: 15 Course <GEOFF Yang - Last Filed: 06/16/19 00:51> Orders Ordered: Discontinued Medications Acetaminophen (Tylenol) 650 mg PO NOW ONE Stop: 06/15/19 17:32 Last Admin: 06/15/19 18:26 Dose: 650 mg Documented by: DOT Sodium Chloride (Normal Saline 0.9%) 1,000 mls @ 150 mls/hr IV CONT JOSUE Last Infusion: 06/15/19 18:29 Dose: 0 mls/hr Documented by: Admin: 06/15/19 16:00 Dose: 150 mls/hr Documented by: CHEMO Ketorolac Tromethamine (Toradol) 15 mg IV NOW ONE Stop: 06/15/19 15:44 Last Admin: 06/15/19 16:00 Dose: 15 mg Documented by: CHEMO Morphine Sulfate (Morphine) 2 mg IV NOW ONE Stop: 06/15/19 17:31 Last Admin: 06/15/19 18:26 Dose: 2 mg Documented by: DOT Vital Signs Vital signs: Vital Signs - 8 hr 06/15/19 15:36 06/15/19 15:39 06/15/19 16:06 Pulse Rate 50 L 52 L 54 L Respiratory Rate 18 18 Blood Pressure [Left Arm] Blood Pressure [Right Arm] 137/68 134/68 145/76 H Pulse Oximetry 99 100 100 06/15/19 18:17 Pulse Rate 58 L Respiratory Rate 14 Blood Pressure [Left Arm] 132/62 Blood Pressure [Right Arm] Pulse Oximetry 100 <Benjamin Frost DO - Last Filed: 06/16/19 18:26> Orders Ordered: Discontinued Medications Acetaminophen (Tylenol) 650 mg PO NOW ONE Stop: 06/15/19 17:32 Last Admin: 06/15/19 18:26 Dose: 650 mg Documented by: DOT Sodium Chloride (Normal Saline 0.9%) 1,000 mls @ 150 mls/hr IV CONT JOSUE Last Infusion: 06/15/19 18:29 Dose: 0 mls/hr Documented by: Admin: 06/15/19 16:00 Dose: 150 mls/hr Documented by: CHEMO Ketorolac Tromethamine (Toradol) 15 mg IV NOW ONE Stop: 06/15/19 15:44 Last Admin: 06/15/19 16:00 Dose: 15 mg Documented by: CHEMO Morphine Sulfate (Morphine) 2 mg IV NOW ONE Stop: 06/15/19 17:31 Last Admin: 06/15/19 18:26 Dose: 2 mg Documented by: DOT Vital Signs Vital signs: Vital Signs - 8 hr 06/15/19 15:36 06/15/19 15:39 06/15/19 16:06 Pulse Rate 50 L 52 L 54 L Respiratory Rate 18 18 Blood Pressure [Left Arm] Blood Pressure [Right Arm] 137/68 134/68 145/76 H Pulse Oximetry 99 100 100 06/15/19 18:17 Pulse Rate 58 L Respiratory Rate 14 Blood Pressure [Left Arm] 132/62 Blood Pressure [Right Arm] Pulse Oximetry 100 MDM - Abdominal Pain <GEOFF Yang - Last Filed: 06/16/19 00:51> Differential Diagnosis Differential diagnosis: Likely calculus of kidney and other (rupture spleen, kidney infection, parasite infection) Medical Records Attestation: I reviewed the patient's medical records. Lab Data Attestation: I reviewed the patient's lab results. Result diagrams: 06/15/19 15:32 06/15/19 15:32 Labs: Lab Results 06/15/19 06/15/19 06/15/19 Range/Units 15:32 15:32 15:32 WBC 8.3 (4.5-11.0) X10^3/uL RBC 4.93 (4.0-5.2) X10^6/uL Hgb 15.1 (12.0-16.0) g/dL Hct 43.7 (36-46) % MCV 88.7 (80-100) fL MCH 30.6 (26-34) PG MCHC 34.5 (30-36) % RDW 14.8 (11.6-14.8) % Plt Count 250 (150-400) X10^3/uL Neut % (Auto) 38.3 L (50-75) % Lymph % (Auto) 39.5 (25-40) % [place] % (Auto) 3.8 (3-14) % Eos % (Auto) 18.2 H (2-4) % Baso % (Auto) 0.2 (0-2) % Neut # (Auto) 3200 (0200-4986) /uL Lymph # (Auto) 3300 (2731-1819) /uL [place] # (Auto) 300 (0-900) /uL Eos # (Auto) 1500 H (0-450) /uL Baso # (Auto) 0 (0-100) /uL PT 11.8 (10.1-12.7) SECONDS INR 1.0 (0.9-1.3) APTT 35 D (26.4-36.2) SECONDS Sodium 138 (137-145) mmol/L Potassium 3.8 (3.4-5.1) mmol/L Chloride 99 (98-107) mmol/L Carbon Dioxide 29 (22-32) mmol/L BUN 14 (7-17) mg/dL Creatinine 0.60 (0.52-1.04) mg/dL Estimated GFR > 60.0 (>60) mL/min BUN/Creatinine Ratio 23.3 H (6-22) Glucose 91 (70-100) mg/dL Lactate (0.7-2.1) mmol/L Calcium 10.1 (8.4-10.2) mg/dL Total Bilirubin 0.5 (0.2-1.3) mg/dL AST 32 (14-36) IU/L ALT 26 (<35) IU/L Alkaline Phosphatase 69 (38-126) U/L Total Protein 8.8 H (6.3-8.2) g/dL Albumin 5.0 (3.5-5.0) g/dL Globulin 3.8 (1.7-4.1) g/dL Albumin/Globulin Ratio 1.3 (1.0-2.8) Lipase 141 (23-300) U/L Procalcitonin (<0.5) ng/mL Urine Color Urine Appearance Urine pH (4.5-8.0) Ur Specific Strawberry (1.000-1.035) Urine Protein (Negative) Urine Glucose (UA) (Negative) g/dL Urine Ketones (NEGATIVE) Urine Occult Blood (Negative) Urine Nitrate (Negative) Urine Bilirubin (NEGATIVE) Urine Urobilinogen (0.2) E.U./dL Ur Leukocyte Esterase (NEGATIVE) Urine RBC (0-5/HPF) Urine WBC (0-5/HPF) Urine Bacteria (None) Ur Culture Indicated? Micro UA Comment 06/15/19 06/15/19 06/15/19 Range/Units 15:50 16:27 16:27 WBC (4.5-11.0) X10^3/uL RBC (4.0-5.2) X10^6/uL Hgb (12.0-16.0) g/dL Hct (36-46) % MCV (80-100) fL MCH (26-34) PG MCHC (30-36) % RDW (11.6-14.8) % Plt Count (150-400) X10^3/uL Neut % (Auto) (50-75) % Lymph % (Auto) (25-40) % [place] % (Auto) (3-14) % Eos % (Auto) (2-4) % Baso % (Auto) (0-2) % Neut # (Auto) (0678-2413) /uL Lymph # (Auto) (0059-7586) /uL [place] # (Auto) (0-900) /uL Eos # (Auto) (0-450) /uL Baso # (Auto) (0-100) /uL PT (10.1-12.7) SECONDS INR (0.9-1.3) APTT (26.4-36.2) SECONDS Sodium (137-145) mmol/L Potassium (3.4-5.1) mmol/L Chloride (98-107) mmol/L Carbon Dioxide (22-32) mmol/L BUN (7-17) mg/dL Creatinine (0.52-1.04) mg/dL Estimated GFR (>60) mL/min BUN/Creatinine Ratio (6-22) Glucose (70-100) mg/dL Lactate 0.9 (0.7-2.1) mmol/L Calcium (8.4-10.2) mg/dL Total Bilirubin (0.2-1.3) mg/dL AST (14-36) IU/L ALT (<35) IU/L Alkaline Phosphatase (38-126) U/L Total Protein (6.3-8.2) g/dL Albumin (3.5-5.0) g/dL Globulin (1.7-4.1) g/dL Albumin/Globulin Ratio (1.0-2.8) Lipase (23-300) U/L Procalcitonin < 0.05 (<0.5) ng/mL Urine Color Yellow Urine Appearance Clear Urine pH 7.0 (4.5-8.0) Ur Specific Strawberry 1.010 (1.000-1.035) Urine Protein Negative (Negative) Urine Glucose (UA) Negative (Negative) g/dL Urine Ketones Negative (NEGATIVE) Urine Occult Blood Negative (Negative) Urine Nitrate Negative (Negative) Urine Bilirubin Negative (NEGATIVE) Urine Urobilinogen 0.2 (0.2) E.U./dL Ur Leukocyte Esterase Negative (NEGATIVE) Urine RBC None seen (0-5/HPF) Urine WBC None seen (0-5/HPF) Urine Bacteria None seen (None) Ur Culture Indicated? Cult not indicated Micro UA Comment Microscopic normal Imaging Data US - abdomen: Radiologist's Impression: [address] [address] Ultrasound Report Signed Patient: Olga Rob KMR#: [id number] : 1965Acct:[id number] Age/Sex: 53 / FDate of Service: 06/15/19 Loc: ED Accession Number: [id number] Procedure: US abdomen limited Ordering Provider: Maximiliano Banks PROCEDURE: US ABDOMEN LIMITED INDICATIONS: LT QUADS PAIN, RECENT CT SHOWED SPLENOMEGALY TECHNIQUE: Real-time focused scanning was performed of the abdomen, with image documentation. COMPARISON: [facility], CT, CT ABDOMEN PELVIS W CON, 06/10/2019, 12:30. FINDINGS: The spleen is enlarged and measures 15.5 cm in craniocaudal dimension. No focal splenic lesions are evident. No perisplenic fluid collections or lacerations are identified. No fluid is seen within the left upper quadrant. The left kidney is normal in size and measures 11.9 cm in length. There is no hydronephrosis or shadowing nephrolithiasis. No cystic or solid renal lesions are appreciated. IMPRESSION: 1. Splenomegaly. 2. No free fluid within the left upper quadrant. Dictated by: Hilario Roa M.D. on 06/15/2019 at 16:23 Approved by: Hilario Roa M.D. on 06/15/2019 at 16:23 MDM Narrative Medical decision making narrative: This is a patient 2nd visit since 5 days ago and she was diagnosed with pyelonephritis at that time. Patient is afebrile with stable vital signs while in ED. patient's chief complaint is bilateral flank pain with left upper and lower quadrant discomfort. Patient states she still has urinary frequency, urgency but no blood at this time. Urine shows no leukocyte esterase or nitrates and does not appears to be infected. No leukocytosis but again shows elevated eosinophil. Normal kidney function test within normal liver function test. Normal lactate and procalcitonin. Blood culture has been drawn. Oral and IV contrast CT test of abdomen and pelvis 5 days ago which indicated moderate splenomegaly, borderline hepatomegaly and mild constipation. Obtained abdominal ultrasound today to evaluated splenomegaly and it indicates again enlarged spleen of 15.5 cm without focal splenic lesion, fluid collection or laceration. There was no fluid around left upper quadrant. Left kidney appears to be in normal size without hydronephrosis or shadowing nephrolithiasis, cystic or solid lesion. Findings were shared with patient and spouse. Unclear etiology why patient still has urinary symptoms and bilateral flank pain with abdominal pain when urine test results has improved without Acute infectious process per blood test or imaging test. Patient advised to take [id number] Tylenol and or Motrin for mild and moderate discomfort and discharged to home with few tabs of tramadol for severe pain. Patient advised to follow-up with her PCP and continue with her antibiotic medication and incorporate takes to help with diarrhea. Return precautions were discussed with the patient and patient verbalized understanding and agrees with the treatment plan. Patient inform she may need repeat imaging test in several weeks to compare splenomegaly. <Benjamin Frost, - Last Filed: 06/16/19 18:26> Lab Data Labs: Lab Results 06/15/19 06/15/19 06/15/19 Range/Units 15:32 15:32 15:32 WBC 8.3 (4.5-11.0) X10^3/uL RBC 4.93 (4.0-5.2) X10^6/uL Hgb 15.1 (12.0-16.0) g/dL Hct 43.7 (36-46) % MCV 88.7 (80-100) fL MCH 30.6 (26-34) PG MCHC 34.5 (30-36) % RDW 14.8 (11.6-14.8) % Plt Count 250 (150-400) X10^3/uL Neut % (Auto) 38.3 L (50-75) % Lymph % (Auto) 39.5 (25-40) % [place] % (Auto) 3.8 (3-14) % Eos % (Auto) 18.2 H (2-4) % Baso % (Auto) 0.2 (0-2) % Neut # (Auto) 3200 (5580-2703) /uL Lymph # (Auto) 3300 (3315-0134) /uL [place] # (Auto) 300 (0-900) /uL Eos # (Auto) 1500 H (0-450) /uL Baso # (Auto) 0 (0-100) /uL PT 11.8 (10.1-12.7) SECONDS INR 1.0 (0.9-1.3) APTT 35 D (26.4-36.2) SECONDS Sodium 138 (137-145) mmol/L Potassium 3.8 (3.4-5.1) mmol/L Chloride 99 (98-107) mmol/L Carbon Dioxide 29 (22-32) mmol/L BUN 14 (7-17) mg/dL Creatinine 0.60 (0.52-1.04) mg/dL Estimated GFR > 60.0 (>60) mL/min BUN/Creatinine Ratio 23.3 H (6-22) Glucose 91 (70-100) mg/dL Lactate (0.7-2.1) mmol/L Calcium 10.1 (8.4-10.2) mg/dL Total Bilirubin 0.5 (0.2-1.3) mg/dL AST 32 (14-36) IU/L ALT 26 (<35) IU/L Alkaline Phosphatase 69 (38-126) U/L Total Protein 8.8 H (6.3-8.2) g/dL Albumin 5.0 (3.5-5.0) g/dL Globulin 3.8 (1.7-4.1) g/dL Albumin/Globulin Ratio 1.3 (1.0-2.8) Lipase 141 (23-300) U/L Procalcitonin (<0.5) ng/mL Urine Color Urine Appearance Urine pH (4.5-8.0) Ur Specific Straw[place] (1.000-1.035) Urine Protein (Negative) Urine Glucose (UA) (Negative) g/dL Urine Ketones (NEGATIVE) Urine Occult Blood (Negative) Urine Nitrate (Negative) Urine Bilirubin (NEGATIVE) Urine Urobilinogen (0.2) E.U./dL Ur Leukocyte Esterase (NEGATIVE) Urine RBC (0-5/HPF) Urine WBC (0-5/HPF) Urine Bacteria (None) Ur Culture Indicated? Micro UA Comment 06/15/19 06/15/19 06/15/19 Range/Units 15:50 16:27 16:27 WBC (4.5-11.0) X10^3/uL RBC (4.0-5.2) X10^6/uL Hgb (12.0-16.0) g/dL Hct (36-46) % MCV (80-100) fL MCH (26-34) PG MCHC (30-36) % RDW (11.6-14.8) % Plt Count (150-400) X10^3/uL Neut % (Auto) (50-75) % Lymph % (Auto) (25-40) % [place] % (Auto) (3-14) % Eos % (Auto) (2-4) % Baso % (Auto) (0-2) % Neut # (Auto) (5564-9053) /uL Lymph # (Auto) (2652-4209) /uL [place] # (Auto) (0-900) /uL Eos # (Auto) (0-450) /uL Baso # (Auto) (0-100) /uL PT (10.1-12.7) SECONDS INR (0.9-1.3) APTT (26.4-36.2) SECONDS Sodium (137-145) mmol/L Potassium (3.4-5.1) mmol/L Chloride (98-107) mmol/L Carbon Dioxide (22-32) mmol/L BUN (7-17) mg/dL Creatinine (0.52-1.04) mg/dL Estimated GFR (>60) mL/min BUN/Creatinine Ratio (6-22) Glucose (70-100) mg/dL Lactate 0.9 (0.7-2.1) mmol/L Calcium (8.4-10.2) mg/dL Total Bilirubin (0.2-1.3) mg/dL AST (14-36) IU/L ALT (<35) IU/L Alkaline Phosphatase (38-126) U/L Total Protein (6.3-8.2) g/dL Albumin (3.5-5.0) g/dL Globulin (1.7-4.1) g/dL Albumin/Globulin Ratio (1.0-2.8) Lipase (23-300) U/L Procalcitonin < 0.05 (<0.5) ng/mL Urine Color Yellow Urine Appearance Clear Urine pH 7.0 (4.5-8.0) Ur Specific Straw[place] 1.010 (1.000-1.035) Urine Protein Negative (Negative) Urine Glucose (UA) Negative (Negative) g/dL Urine Ketones Negative (NEGATIVE) Urine Occult Blood Negative (Negative) Urine Nitrate Negative (Negative) Urine Bilirubin Negative (NEGATIVE) Urine Urobilinogen 0.2 (0.2) E.U./dL Ur Leukocyte Esterase Negative (NEGATIVE) Urine RBC None seen (0-5/HPF) Urine WBC None seen (0-5/HPF) Urine Bacteria None seen (None) Ur Culture Indicated? Cult not indicated Micro UA Comment Microscopic normal Discharge Plan Departure Patient Disposition: Home Clinical Impression: Pyelonephritis, Enlargement of spleen Abdominal pain Qualifiers: Abdominal location: left lower quadrant Qualified Code(s): R10.32 - Left lower quadrant pain Discharge Date/Time: 06/15/19 18:37 Instructions: DI for Kidney Infection, DI for Abdominal Pain-Adult, DI for Enlarged Spleen Activity Restrictions/Additional Instructions: You have been diagnosed with [improving kidney infection. Your blood tests, urine tests are looking good. Your electrolytes looks good including kidney function test. However, there is elevation in eosinophil and increase with allergies and parasites infection. Ultrasound test today does not show fluid around the spleen, LUQ and normal looking Left kidney. Please continue to take your antibiotic medication until it is completed and increase hydration. ]. What to do: *Take your medications as directed. Please take Tylenol and or Motrin as needed for discomfort. 650 mg Tylenol up to 4 times a day and 400 mg ibuprofen up to 3 times a day with food. You can take tramadol only for severe pain. This can cause drowsiness so please take precautions. [facility] *Follow up with your primary care provider in 2-3 days, call for an appointment. Let them know you were seen in the ED and that we asked you to be seen in follow up. You may need repeat imaging test in a few weeks. *Return to ED if you have any new, worsening, or concerning symptoms, such as [chest pain, breathing difficulty, unable to tolerate fluids, high fever, worsening pain or any acute concerns]. Prescriptions: New tramadol 50 mg tablet 50 mg PO Q12H PRN (Reason: pain) Qty: 7 RF: 0 No Action methocarbamol 500 mg tablet 500 mg PO Q4H PRN (Reason: Spasms) RF: 0 metformin 500 mg tablet 500 mg PO BID RF: 0 levothyroxine 175 mcg tablet 175 mcg PO DAILY RF: 0 citalopram 40 mg tablet 40 mg PO DAILY RF: 0 metoprolol tartrate 100 mg tablet 100 mg PO BID RF: 0 amlodipine 5 mg tablet 5 mg PO QPM RF: 0 alprazolam 0.25 mg tablet 0.5 mg PO QPM RF: 0 pantoprazole 40 mg tablet,delayed release (DR/EC) 40 mg PO DAILY RF: 0 triamterene-hydrochlorothiazid 37.5-25 mg tablet 1 tab PO DAILY RF: 0 zolpidem 10 mg tablet 10 mg PO BEDTIME RF: 0 nitrofurantoin monohyd/m-cryst 100 mg capsule 100 mg PO BID RF: 0 gabapentin 600 mg Tablet 1,800 mg PO BEDTIME RF: 0 gabapentin 600 mg Tablet 1,200 mg PO QAM RF: 0 cephalexin 500 mg capsule 500 mg PO BID 14 Days Qty: 28 RF: 0 ondansetron 4 mg tablet,disintegrating 4 mg PO Q8H Qty: 10 RF: 0 tramadol 50 mg tablet 50 mg PO Q8H PRN (Reason: pain) Qty: 10 RF: 0 Referrals: Curt Alcantar MD [Primary Care Provider] - <Benjamin Frost, - Last Filed: 06/16/19 18:26> Sign Out Provider Sign Out Attestation: Dr Frost Co-Sign Statement: I was available for consultation during this patient's emergency department visit. This chart is signed by myself for administrative purposes only. I did not have direct contact with this patient during this visit. They were seen independently by the APC.
[2019-06-15 18:17] VITALS: BP 132/62; PULSE 58; RESP 14; O2SAT 100
[2019-06-15] MEDS: ACETAMINOPHEN 325 MG TABLET 650 MG PO (18:26)
[2019-06-15] MEDS: MORPHINE 2 MG/ML INJ IV (18:26)
== END 2019-06-15 18:37 | disposition home or self-care (01) ==
PROVIDERS: Emergency Medicine; Emergency Provider Nurse Practitioner Family; Family Provider Family Medicine; PCP Family Medicine
DX: N12 Tubulo-interstitial nephritis, not specified as acute or chronic (principal); R16.1 Splenomegaly, not elsewhere classified; R10.32 Left lower quadrant pain; M54.5 Low back pain; R50.9 Fever, unspecified; I10 Essential (primary) hypertension; K59.00 Constipation, unspecified
CPT/HCPCS: 36415; 76705; 80053; 81001; 83605; 83690; 84145; 85025; 85610; 85730; 87040; 93005; 96361; 96374; 96375; 99284; 99285; J1885; J2270

== ENCOUNTER → 2019-07-19 10:44 | Outpatient (CLI) | payer OTHER, SELFPAY ==
--- NOTE | 2019-07-19 | DI.US.S_ITS ---
PROCEDURE: US ABDOMEN COMPLETE INDICATIONS: SPLENOMEGALY TECHNIQUE: Real-time scanning was performed of the abdominal and retroperitoneal organs, with image documentation. COMPARISON: [facility], CT, CT ABDOMEN PELVIS W CON, 06/10/2019, 12:30. FINDINGS: Liver: Liver is normal in size and homogeneous in echotexture. Gallbladder: No gallstones identified. Normal gallbladder wall. No pericholecystic fluid. Negative sonographic Olmedo sign. Biliary ducts: Intrahepatic bile ducts are non-dilated. Extrahepatic bile duct caliber measures 5.8 mm. Normal is 6-7 mm or less in diameter, or 10 mm or less post-cholecystectomy. Pancreas: Visualized portions of the pancreas are sonographically normal. Spleen: Spleen is enlarged in size at 15.6 cm and homogeneous in echotexture. Kidneys: Kidneys are normal in size and echotexture. Right kidney measures 12.2 cm long; left kidney measures 13.8 cm long. No hydronephrosis or nephrolithiasis. No solid masses. Aorta: Visualized aorta is normal in caliber at less than 3 cm. Iliacs: Proximal common iliac arteries are normal in caliber at less than 2.5 cm. IVC: Intrahepatic inferior vena cava is patent. Miscellaneous: No free abdominal fluid. IMPRESSION: Splenomegaly. Dictated by: Vasquez Hoffman [facility] Interpreted: Willi Nina MD on 07/19/2019 at 13:39 Approved by: Willi Nina M.D. on 07/19/2019 at 21:07
== END ==
PROVIDERS: Family Provider Family Medicine; PCP Family Medicine; Referring Provider Family Medicine; Visit Provider Family Medicine
DX: R16.1 Splenomegaly, not elsewhere classified (principal)
CPT/HCPCS: 76700

== ENCOUNTER → 2019-10-26 09:02 | Outpatient (CLI) | payer OTHER, SELFPAY ==
--- NOTE | 2019-10-26 | DI.US.S_ITS ---
PROCEDURE: US THYROID INDICATIONS: HYPERTHYROIDISM TECHNIQUE: Real-time scanning was performed of the thyroid gland, with image documentation. COMPARISON: None. FINDINGS: Right: Thyroid lobe measures 4.0 x 1.0 x 1.0 cm, and is mildly heterogeneous in echotexture. 3 mm colloid cyst. Left: Thyroid lobe measures 3.0 x 1.0 x 1.3 cm, and is mildly heterogeneous in echotexture. Isthmus: 3.0 mm thick. IMPRESSION: Mildly heterogeneous thyroid and 3 mm right colloid cyst. Dictated by: Vasquez Hoffman [facility] Interpreted: Carlos Fowler MD on 10/26/2019 at 12:16 Approved by: Carlos Fowler M.D. on 10/26/2019 at 17:21
== END ==
PROVIDERS: Family Provider Family Medicine; PCP Family Medicine; Referring Provider Family Medicine; Visit Provider Family Medicine
DX: E05.90 Thyrotoxicosis, unspecified without thyrotoxic crisis or storm (principal); E04.1 Nontoxic single thyroid nodule; R16.1 Splenomegaly, not elsewhere classified
CPT/HCPCS: 76536

== ENCOUNTER → 2021-11-08 09:11 | Outpatient (CLI) | payer OTHER, SELFPAY ==
[2021-11-08 19:11] LABS: Add Manual Diff / Slide Review NO; Basophils Absolute Auto 0 /uL (0-100); Basophils Percent Auto 0.5 % (0-2); Eosinophils Absolute Auto 100 /uL (0-450); Eosinophils Percent Auto 3.1 % (2-4); Hematocrit 39.2 % (36-46); Hemoglobin 13.3 g/dL (12.0-16.0); Lymphocytes Absolute Auto 1000 /uL (1100-4500); Lymphocytes Percent Auto 30.7 % (25-40); Mean Corpuscular HGB Conc 33.9 % (30-36); Mean Corpuscular Hemoglobin 30.7 PG (26-34); Mean Corpuscular Volume 90.6 fL (80-100); Monocytes Absolute Auto 200 /uL (0-900); Monocytes Percent Auto 4.7 % (3-14); Neutrophils Absolute Auto 2000 /uL (1500-7000); Platelet Count 155 X10^3/uL (150-400); Red Blood Cell Count 4.33 X10^6/uL (4.0-5.2); Red Cell Distribution Width 13.9 % (11.6-14.8); White Blood Cell Count 3.3 X10^3/uL (4.5-11.0)
[2021-11-08 19:27] LABS: Erythrocyte Sedimentation Rate 17 MM/HR (0-20)
[2021-11-08 19:34] LABS: Alanine Aminotransferase 16 IU/L (<35); Albumin 4.7 g/dL (3.5-5.0); Albumin Globulin Ratio 1.6 (1.0-2.8); Alkaline Phosphatase 63 U/L (38-126); Aspartate Aminotransferase 30 IU/L (14-36); BUN Creatinine Ratio 18.8 (6-22); Bilirubin Total 0.4 mg/dL (0.2-1.3); Blood Urea Nitrogen 19 mg/dL (7-17); Calcium 9.1 mg/dL (8.4-10.2); Carbon Dioxide 31 mmol/L (22-32); Chloride 103 mmol/L (98-107); Cholesterol 212 mg/dL (140-199); Estimated Glomerular Filt Rate > 60 mL/min (>60); Globulin 2.9 g/dL (1.7-4.1); Glucose 85 mg/dL (70-100); HDL Cholesterol 56 mg/dL (40-60); HEMOLYSIS < 15 (0-50); LDL Cholesterol Calculated 124 mg/dL (<100); Potassium 4.3 mmol/L (3.4-5.1); Sodium 141 mmol/L (137-145); Total Protein 7.6 g/dL (6.3-8.2); Triglycerides 158 mg/dL (35-150)
[2021-11-08 20:05] LABS: TSH w/ Reflex to FT4 5.71 uIU/mL (0.47-4.68)
[2021-11-08 20:25] LABS: Vitamin B12 257 pg/mL (239-931)
== END ==
PROVIDERS: Family Provider Family Medicine; PCP Family Medicine; Visit Provider Family Medicine
DX: E03.9 Hypothyroidism, unspecified (principal); E53.8 Deficiency of other specified B group vitamins; F33.41 Major depressive disorder, recurrent, in partial remission; F51.01 Primary insomnia; G62.9 Polyneuropathy, unspecified; I10 Essential (primary) hypertension; I73.00 Raynaud's syndrome without gangrene; K21.9 Gastro-esophageal reflux disease without esophagitis; M25.511 Pain in right shoulder; M25.512 Pain in left shoulder; M32.19 Other organ or system involvement in systemic lupus erythematosus; M47.816 Spondylosis without myelopathy or radiculopathy, lumbar region; M79.7 Fibromyalgia; N18.2 Chronic kidney disease, stage 2 (mild); N18.31 Chronic kidney disease, stage 3a; R16.0 Hepatomegaly, not elsewhere classified; R73.01 Impaired fasting glucose; R76.8 Other specified abnormal immunological findings in serum; Z79.899 Other long term (current) drug therapy
CPT/HCPCS: 80053; 80061; 82607; 84439; 84443; 85025; 85651

== ENCOUNTER → 2022-01-17 14:57 | Outpatient (CLI) | payer OTHER, SELFPAY ==
[2022-01-17 20:11] LABS: Add Manual Diff / Slide Review NO; Basophils Absolute Auto 0 /uL (0-100); Basophils Percent Auto 0.7 % (0-2); Eosinophils Absolute Auto 100 /uL (0-450); Eosinophils Percent Auto 3.2 % (2-4); Hematocrit 39.4 % (36-46); Hemoglobin 13.9 g/dL (12.0-16.0); Lymphocytes Absolute Auto 1200 /uL (1100-4500); Mean Corpuscular HGB Conc 35.3 % (30-36); Mean Corpuscular Hemoglobin 31.3 PG (26-34); Mean Corpuscular Volume 88.8 fL (80-100); Monocytes Absolute Auto 200 /uL (0-900); Monocytes Percent Auto 5.6 % (3-14); Neutrophils Absolute Auto 2100 /uL (1500-7000); Neutrophils Percent Auto 58.5 % (50-75); Platelet Count 156 X10^3/uL (150-400); Red Blood Cell Count 4.44 X10^6/uL (4.0-5.2); Red Cell Distribution Width 13.6 % (11.6-14.8); White Blood Cell Count 3.7 X10^3/uL (4.5-11.0)
[2022-01-17 20:17] LABS: Erythrocyte Sedimentation Rate 10 MM/HR (0-20)
[2022-01-17 20:18] LABS: Estimated Glomerular Filt Rate 58 mL/min (>60)
[2022-01-17 20:24] LABS: High Sensitivity CRP - Cardiac 0.5 mg/L (1.0-3.0); Rheumatoid Factor < 8.6 IU/mL (<12.0)
[2022-01-17 20:45] LABS: TSH w/ Reflex to FT4 2.29 uIU/mL (0.47-4.68)
[2022-01-17 20:59] LABS: Vitamin B12 262 pg/mL (239-931)
[2022-01-19 03:43] LABS: Complement C3 119 mg/dL (82-167)
[2022-01-19 16:48] LABS: DNA (DS) Antibody 1 IU/mL (0-9)
[2022-01-21 22:03] LABS: CCP Antibodies IgG/IgA 7 units (0-19)
[2022-01-22 12:07] LABS: Albumin 4.2 g/dL (2.9-4.4); Alpha 1 Globulin 0.2 g/dL (0.0-0.4); Alpha 2 Globulin 0.7 g/dL (0.4-1.0); Beta 1 Globulin 1.1 g/dL (0.7-1.3); Gamma Globulin 1.3 g/dL (0.4-1.8); Protein, Total 7.5 g/dL (6.0-8.5)
== END ==
PROVIDERS: Family Provider Family Medicine; PCP Family Medicine; Visit Provider Internal Medicine Rheumatology
DX: R20.2 Paresthesia of skin (principal); R53.83 Other fatigue; R76.8 Other specified abnormal immunological findings in serum; Z79.899 Other long term (current) drug therapy
CPT/HCPCS: 82565; 82607; 84155; 84165; 84443; 85025; 85651; 86140; 86160; 86200; 86225; 86430

== ENCOUNTER → 2022-06-19 14:28 | Outpatient (CLI) | payer OTHER, SELFPAY ==
[2022-06-19 19:33] LABS: Add Manual Diff / Slide Review NO; Basophils Absolute Auto 0 /uL (0-100); Basophils Percent Auto 0.7 % (0-2); Eosinophils Absolute Auto 200 /uL (0-450); Eosinophils Percent Auto 3.6 % (2-4); Hematocrit 41.4 % (36-46); Hemoglobin 13.8 g/dL (12.0-16.0); Lymphocytes Absolute Auto 1700 /uL (1100-4500); Lymphocytes Percent Auto 35.5 % (25-40); Mean Corpuscular HGB Conc 33.3 % (30-36); Mean Corpuscular Hemoglobin 30.5 PG (26-34); Mean Corpuscular Volume 91.6 fL (80-100); Monocytes Absolute Auto 300 /uL (0-900); Monocytes Percent Auto 6.2 % (3-14); Neutrophils Absolute Auto 2600 /uL (1500-7000); Platelet Count 200 X10^3/uL (150-400); Red Blood Cell Count 4.52 X10^6/uL (4.0-5.2); Red Cell Distribution Width 14.3 % (11.6-14.8); White Blood Cell Count 4.9 X10^3/uL (4.5-11.0)
[2022-06-19 19:39] LABS: Estimated Glomerular Filt Rate 57 mL/min (>60)
[2022-06-19 19:41] LABS: BUN Creatinine Ratio 18.4 (6-22); Blood Urea Nitrogen 21 mg/dL (7-17); Calcium 9.7 mg/dL (8.4-10.2); Carbon Dioxide 32 mmol/L (22-32); Chloride 98 mmol/L (98-107); Estimated Glomerular Filt Rate 56 mL/min (>60); Glucose 82 mg/dL (70-100); HEMOLYSIS < 15 (0-50); Potassium 4.2 mmol/L (3.4-5.1); Sodium 139 mmol/L (137-145)
[2022-06-19 19:49] LABS: Erythrocyte Sedimentation Rate 9 MM/HR (0-20)
[2022-06-19 19:58] LABS: Vitamin D 25 Hydroxy (D3) 41.9 ng/mL (30.0-100.0)
[2022-06-19 20:01] LABS: Appearance Urine UA CLEAR; Bilirubin Urine UA 1+ (NEGATIVE); Color Urine UA YELLOW; Glucose Urine UA NEGATIVE (Negative); Ketones Urine UA NEGATIVE (NEGATIVE); Leukocyte Esterase Urine UA NEGATIVE (NEGATIVE); Nitrite Urine UA NEGATIVE (Negative); Occult Blood Urine UA NEGATIVE (Negative); Protein Urine UA TRACE (Negative); Specific Gravity Urine UA >=1.030 (1.000-1.035)
[2022-06-19 20:19] LABS: Ferritin 89 ng/mL (11-264)
[2022-06-19 20:33] LABS: Vitamin B12 590 pg/mL (239-931)
[2022-06-19 20:39] LABS: Bacteria Urine None Seen; Culture Indicated Urine Cult Not Indicated; RBC Urine None Seen (0-5/HPF); Squamous Epithelial Cell Urine 0-1 /HPF (0-5/HPF); WBC Urine 0-1/HPF (0-5/HPF)
[2022-06-19 20:42] LABS: Ictotest Urine Negative (Negative)
[2022-06-19 21:39] LABS: Creatinine Urine Random 166.8 mg/dL
[2022-06-19 21:42] LABS: Protein (Total) Urine Random < 5 mg/dL (0-12); Protein Creatinine Ratio Urine 0.02 GRAM/24H
[2022-06-21 07:20] LABS: High Sensitivity CRP - Cardiac 0.6 mg/L (1.0-3.0)
[2022-06-21 17:08] LABS: DNA (DS) Antibody 1 IU/mL (0-9)
== END ==
PROVIDERS: Family Provider Family Medicine; PCP Family Medicine; Visit Provider Internal Medicine Rheumatology
DX: G89.4 Chronic pain syndrome (principal); R76.8 Other specified abnormal immunological findings in serum; E03.9 Hypothyroidism, unspecified; F33.41 Major depressive disorder, recurrent, in partial remission; I10 Essential (primary) hypertension; L21.9 Seborrheic dermatitis, unspecified; N18.31 Chronic kidney disease, stage 3a
CPT/HCPCS: 80048; 81001; 82306; 82565; 82570; 82607; 82728; 84156; 85025; 85651; 86140; 86160; 86225

== ENCOUNTER → 2022-09-12 14:40 | Outpatient (CLI) | payer OTHER, SELFPAY ==
[2022-09-12 20:00] LABS: Add Manual Diff / Slide Review NO; Basophils Absolute Auto 0 /uL (0-100); Basophils Percent Auto 0.7 % (0-2); Eosinophils Absolute Auto 100 /uL (0-450); Eosinophils Percent Auto 2.6 % (2-4); Hematocrit 38.3 % (36-46); Hemoglobin 13.1 g/dL (12.0-16.0); Lymphocytes Absolute Auto 1100 /uL (1100-4500); Mean Corpuscular HGB Conc 34.1 % (30-36); Mean Corpuscular Hemoglobin 30.7 PG (26-34); Monocytes Absolute Auto 300 /uL (0-900); Monocytes Percent Auto 6.9 % (3-14); Neutrophils Absolute Auto 2600 /uL (1500-7000); Neutrophils Percent Auto 62.8 % (50-75); Platelet Count 169 X10^3/uL (150-400); Red Blood Cell Count 4.26 X10^6/uL (4.0-5.2); Red Cell Distribution Width 14.1 % (11.6-14.8); White Blood Cell Count 4.1 X10^3/uL (4.5-11.0)
[2022-09-12 20:05] LABS: Alanine Aminotransferase 22 IU/L (<35); Albumin 4.4 g/dL (3.5-5.0); Albumin Globulin Ratio 1.4 (1.0-2.8); Alkaline Phosphatase 53 U/L (38-126); Aspartate Aminotransferase 29 IU/L (14-36); Bilirubin Total 0.5 mg/dL (0.2-1.3); Blood Urea Nitrogen 25 mg/dL (7-17); Calcium 9.9 mg/dL (8.4-10.2); Carbon Dioxide 28 mmol/L (22-32); Chloride 99 mmol/L (98-107); Cholesterol 210 mg/dL (140-199); Estimated Glomerular Filt Rate 45 mL/min (>60); Globulin 3.2 g/dL (1.7-4.1); Glucose 71 mg/dL (70-100); HDL Cholesterol 53 mg/dL (40-60); HEMOLYSIS < 15 (0-50); LDL Cholesterol Calculated 108 mg/dL (<100); Potassium 4.1 mmol/L (3.4-5.1); Sodium 137 mmol/L (137-145); Total Protein 7.6 g/dL (6.3-8.2); Triglycerides 244 mg/dL (35-150)
[2022-09-12 20:39] LABS: Erythrocyte Sedimentation Rate 15 MM/HR (0-20)
[2022-09-12 20:53] LABS: Vitamin B12 288 pg/mL (239-931)
[2022-09-12 21:00] LABS: TSH w/ Reflex to FT4 6.43 uIU/mL (0.47-4.68)
[2022-09-12 21:45] LABS: Free T4, Direct Thyroxine 1.11 ng/dL (0.78-2.19)
== END ==
PROVIDERS: Family Provider Family Medicine; PCP Family Medicine; Visit Provider Family Medicine
DX: E03.9 Hypothyroidism, unspecified (principal); E53.8 Deficiency of other specified B group vitamins; F33.41 Major depressive disorder, recurrent, in partial remission; I10 Essential (primary) hypertension; I73.00 Raynaud's syndrome without gangrene; N18.31 Chronic kidney disease, stage 3a; Z79.899 Other long term (current) drug therapy
CPT/HCPCS: 80053; 80061; 82607; 84439; 84443; 85025; 85651

== ENCOUNTER → 2022-10-21 13:29 | Outpatient (CLI) | payer OTHER, SELFPAY ==
[2022-10-21 19:45] LABS: Appearance Urine UA CLEAR; Bilirubin Urine UA NEGATIVE (NEGATIVE); Color Urine UA YELLOW; Glucose Urine UA NEGATIVE (Negative); Ketones Urine UA NEGATIVE (NEGATIVE); Leukocyte Esterase Urine UA NEGATIVE (NEGATIVE); Nitrite Urine UA NEGATIVE (Negative); Occult Blood Urine UA NEGATIVE (Negative); Protein Urine UA NEGATIVE (Negative); Specific Gravity Urine UA 1.025 (1.000-1.035); Urobilinogen Urine UA 0.2 E.U./dL (0.2)
[2022-10-21 19:57] LABS: Phosphorous 3.8 mg/dL (2.5-4.5)
[2022-10-21 20:05] LABS: Bacteria Urine Occasional (0-1); Culture Indicated Urine Specimen Cultured; RBC Urine None Seen (0-5/HPF); Renal Epithelial Cells Urine 0-1/HPF (0-1/HPF); Squamous Epithelial Cell Urine None Seen (0-5/HPF); WBC Urine 5-10/HPF (0-5/HPF)
[2022-10-21 20:07] LABS: Vitamin D 25 Hydroxy (D3) 55.6 ng/mL (30.0-100.0)
[2022-10-21 20:11] LABS: Creatinine Urine Random 75.8 mg/dL
[2022-10-21 20:21] LABS: TSH w/ Reflex to FT4 1.54 uIU/mL (0.47-4.68)
[2022-10-21 20:24] LABS: Hepatitis B Surface Antigen NEGATIVE s/c (NEGATIVE)
[2022-10-21 20:25] LABS: Microalbumin Urine Random < 0.6 mg/dL (0-1.6)
[2022-10-21 20:50] LABS: HIV 1 & 2 Ab/Ag 4th Gen Combo NEGATIVE (NEGATIVE); Hep C Virus Ab w/Reflex Quant NEGATIVE s/c (NEGATIVE)
[2022-10-24 16:16] LABS: Albumin 3.9 g/dL (2.9-4.4); Alpha-1-Globulin 0.2 g/dL (0.0-0.4); Alpha-2-Globulin 0.8 g/dL (0.4-1.0); Gamma Globulin 1.5 g/dL (0.4-1.8); Globulin Total 3.6 g/dL (2.2-3.9); Protein, Total 7.5 g/dL (6.0-8.5)
[2022-10-25 12:09] LABS: Cytoplasmic C-ANCA <1:20 titer (Neg:<1:20); Perinuclear P-ANCA <1:20 titer (Neg:<1:20)
[2022-10-25 13:25] LABS: M-Spike % Not Observed % (Not Observed); Urine Total Protein 5.3 mg/dL (Not Estab.)
== END ==
PROVIDERS: Family Provider Family Medicine; PCP Family Medicine; Visit Provider Family Medicine
DX: G62.9 Polyneuropathy, unspecified (principal); M32.9 Systemic lupus erythematosus, unspecified; N17.9 Acute kidney failure, unspecified; N18.31 Chronic kidney disease, stage 3a; R10.9 Unspecified abdominal pain; R16.0 Hepatomegaly, not elsewhere classified; R19.7 Diarrhea, unspecified; R55 Syncope and collapse; Z79.899 Other long term (current) drug therapy
CPT/HCPCS: 81001; 82043; 82306; 82570; 83516; 84100; 84155; 84156; 84165; 84166; 84443; 86038; 86060; 86256; 86803; 87086; 87340; 87389

== ENCOUNTER → 2023-01-20 15:45 | Outpatient (CLI) | payer OTHER, SELFPAY | PROVIDERS: Family Provider Family Medicine; PCP Family Medicine; Visit Provider Family Medicine | DX: M32.9 Systemic lupus erythematosus, unspecified (principal); N17.9 Acute kidney failure, unspecified; R10.9 Unspecified abdominal pain; R16.0 Hepatomegaly, not elsewhere classified; R19.7 Diarrhea, unspecified; R55 Syncope and collapse; Z79.899 Other long term (current) drug therapy | CPT/HCPCS: 87045; 87177; 87899 ==

== ENCOUNTER → 2023-01-27 11:42 | Outpatient (CLI) | payer OTHER, SELFPAY ==
[2023-01-27 19:52] LABS: BUN Creatinine Ratio 12.4 (6-22); Blood Urea Nitrogen 15 mg/dL (7-17); Estimated Glomerular Filt Rate 52 mL/min (>60)
[2023-01-27 20:04] LABS: High Sensitivity CRP - Cardiac 0.9 mg/L (1.0-3.0)
[2023-01-27 20:17] LABS: Creatinine Urine Random 112.5 mg/dL
[2023-01-27 20:31] LABS: Erythrocyte Sedimentation Rate 15 MM/HR (0-20)
[2023-01-27 20:34] LABS: Add Manual Diff / Slide Review NO; Basophils Absolute Auto 0 /uL (0-100); Basophils Percent Auto 0.8 % (0-2); Eosinophils Absolute Auto 200 /uL (0-450); Eosinophils Percent Auto 4.7 % (2-4); Hematocrit 41.8 % (36-46); Lymphocytes Absolute Auto 1300 /uL (1100-4500); Lymphocytes Percent Auto 29.8 % (25-40); Mean Corpuscular HGB Conc 33.6 % (30-36); Mean Corpuscular Hemoglobin 31.3 PG (26-34); Mean Corpuscular Volume 93.2 fL (80-100); Monocytes Absolute Auto 300 /uL (0-900); Monocytes Percent Auto 6.1 % (3-14); Neutrophils Absolute Auto 2600 /uL (1500-7000); Neutrophils Percent Auto 58.6 % (50-75); Platelet Count 223 X10^3/uL (150-400); Red Blood Cell Count 4.49 X10^6/uL (4.0-5.2); Red Cell Distribution Width 14.5 % (11.6-14.8); White Blood Cell Count 4.4 X10^3/uL (4.5-11.0)
[2023-01-27 20:42] LABS: Microalbumin Urine Random < 0.6 mg/dL (0-1.6)
[2023-01-29 06:08] LABS: Complement C3 121 mg/dL (82-167)
[2023-01-29 17:57] LABS: DNA (DS) Antibody 1 IU/mL (0-9)
== END ==
PROVIDERS: Family Provider Family Medicine; PCP Family Medicine; Visit Provider Internal Medicine Rheumatology
DX: R76.8 Other specified abnormal immunological findings in serum (principal); N17.8 Other acute kidney failure; I10 Essential (primary) hypertension
CPT/HCPCS: 82043; 82565; 82570; 84520; 85025; 85651; 86140; 86160; 86225

== ENCOUNTER → 2023-03-27 13:33 | Outpatient (CLI) | payer OTHER, SELFPAY ==
[2023-03-27 19:23] LABS: BUN Creatinine Ratio 14.4 (6-22); Blood Urea Nitrogen 18 mg/dL (7-17); Calcium 9.6 mg/dL (8.4-10.2); Carbon Dioxide 30 mmol/L (22-32); Chloride 98 mmol/L (98-107); Estimated Glomerular Filt Rate 50 mL/min (>60); Glucose 77 mg/dL (70-100); HEMOLYSIS < 15 (0-50); Potassium 4.2 mmol/L (3.4-5.1); Sodium 136 mmol/L (137-145)
== END ==
PROVIDERS: Family Provider Family Medicine; PCP Family Medicine; Visit Provider Family Medicine
DX: N17.9 Acute kidney failure, unspecified (principal); E03.9 Hypothyroidism, unspecified; M32.9 Systemic lupus erythematosus, unspecified
CPT/HCPCS: 80048

== ENCOUNTER → 2023-08-14 14:00 | Outpatient (CLI) | payer OTHER, SELFPAY ==
[2023-08-14 19:08] LABS: Add Manual Diff / Slide Review NO; Basophils Absolute Auto 0 /uL (0-100); Basophils Percent Auto 0.9 % (0-2); Eosinophils Absolute Auto 200 /uL (0-450); Eosinophils Percent Auto 4.4 % (2-4); Hematocrit 40.4 % (36-46); Hemoglobin 13.7 g/dL (12.0-16.0); Lymphocytes Absolute Auto 1200 /uL (1100-4500); Mean Corpuscular Hemoglobin 31.4 PG (26-34); Mean Corpuscular Volume 92.3 fL (80-100); Monocytes Absolute Auto 300 /uL (0-900); Monocytes Percent Auto 7.3 % (3-14); Neutrophils Absolute Auto 2200 /uL (1500-7000); Neutrophils Percent Auto 56.4 % (50-75); Platelet Count 182 X10^3/uL (150-400); Red Blood Cell Count 4.38 X10^6/uL (4.0-5.2); Red Cell Distribution Width 14.2 % (11.6-14.8)
[2023-08-14 19:22] LABS: Alanine Aminotransferase 22 IU/L (<35); Albumin 4.5 g/dL (3.5-5.0); Albumin Globulin Ratio 1.4 (1.0-2.8); Alkaline Phosphatase 61 U/L (38-126); Aspartate Aminotransferase 30 IU/L (14-36); BUN Creatinine Ratio 17.6 (6-22); Bilirubin Total 0.6 mg/dL (0.2-1.3); Blood Urea Nitrogen 24 mg/dL (7-17); Carbon Dioxide 33 mmol/L (22-32); Chloride 101 mmol/L (98-107); Cholesterol 204 mg/dL (140-199); Estimated Glomerular Filt Rate 45 mL/min (>60); Globulin 3.3 g/dL (1.7-4.1); Glucose 83 mg/dL (70-100); HDL Cholesterol 67 mg/dL (40-60); HEMOLYSIS < 15 (0-50); LDL Cholesterol Calculated 93 mg/dL (<100); Potassium 3.9 mmol/L (3.4-5.1); Sodium 140 mmol/L (137-145); Total Protein 7.8 g/dL (6.3-8.2); Triglycerides 218 mg/dL (35-150)
[2023-08-14 19:29] LABS: NT-proBNP (BNP-Adult 18+) 38 pg/mL (<125)
[2023-08-14 19:51] LABS: TSH w/ Reflex to FT4 2.43 uIU/mL (0.47-4.68)
== END ==
PROVIDERS: Family Provider Family Medicine; PCP Family Medicine; Visit Provider Family Medicine
DX: R60.0 Localized edema (principal); R06.02 Shortness of breath; R00.2 Palpitations; R63.5 Abnormal weight gain; E03.9 Hypothyroidism, unspecified; I10 Essential (primary) hypertension; Z79.899 Other long term (current) drug therapy
CPT/HCPCS: 80053; 80061; 83880; 84443; 85025

== ENCOUNTER → 2023-11-18 14:03 | Outpatient (CLI) | payer OTHER, SELFPAY ==
[2023-11-18 19:47] LABS: Add Manual Diff / Slide Review NO; Basophils Absolute Auto 0 /uL (0-100); Basophils Percent Auto 0.5 % (0-2); Eosinophils Absolute Auto 300 /uL (0-450); Eosinophils Percent Auto 5.9 % (2-4); Hematocrit 38.1 % (36-46); Hemoglobin 13.3 g/dL (12.0-16.0); Lymphocytes Absolute Auto 1400 /uL (1100-4500); Lymphocytes Percent Auto 30.9 % (25-40); Mean Corpuscular Hemoglobin 31.4 PG (26-34); Mean Corpuscular Volume 89.9 fL (80-100); Monocytes Absolute Auto 400 /uL (0-900); Neutrophils Absolute Auto 2400 /uL (1500-7000); Neutrophils Percent Auto 54.7 % (50-75); Platelet Count 196 X10^3/uL (150-400); Red Blood Cell Count 4.24 X10^6/uL (4.0-5.2); Red Cell Distribution Width 14.4 % (11.6-14.8); White Blood Cell Count 4.4 X10^3/uL (4.5-11.0)
[2023-11-18 20:02] LABS: Alanine Aminotransferase 27 IU/L (<35); Aspartate Aminotransferase 34 IU/L (14-36); Estimated Glomerular Filt Rate 46 mL/min (>60)
[2023-11-18 20:04] LABS: Appearance Urine UA CLEAR; Bilirubin Urine UA NEGATIVE (NEGATIVE); Color Urine UA YELLOW; Glucose Urine UA NEGATIVE (Negative); Ketones Urine UA NEGATIVE (NEGATIVE); Leukocyte Esterase Urine UA NEGATIVE (NEGATIVE); Nitrite Urine UA NEGATIVE (Negative); Occult Blood Urine UA NEGATIVE (Negative); Protein Urine UA NEGATIVE (Negative); Specific Gravity Urine UA 1.025 (1.000-1.035); Urobilinogen Urine UA 0.2 E.U./dL (0.2)
[2023-11-18 20:07] LABS: High Sensitivity CRP - Cardiac 1.3 mg/L (1.0-3.0)
[2023-11-18 20:08] LABS: Erythrocyte Sedimentation Rate 14 MM/HR (0-20)
[2023-11-18 20:25] LABS: Urine Volume 10mL (spun)
[2023-11-18 20:26] LABS: Amorphous Sediment Urine 1+; Bacteria Urine Few (2-10); Culture Indicated Urine Cult Not Indicated; RBC Urine None Seen (0-5/HPF); Squamous Epithelial Cell Urine 0-1 /HPF (0-5/HPF); WBC Urine None Seen (0-5/HPF)
[2023-11-18 20:29] LABS: Creatinine Urine Random 178.81 mg/dL
[2023-11-18 20:31] LABS: Protein (Total) Urine Random < 5 mg/dL (0-12); Protein Creatinine Ratio Urine 0.02 GRAM/24H
[2023-11-20 04:13] LABS: Complement C3 120 mg/dL (82-167)
[2023-11-20 19:36] LABS: DNA (DS) Antibody 1 IU/mL (0-9)
== END ==
PROVIDERS: Family Provider Family Medicine; PCP Family Medicine; Visit Provider Internal Medicine Rheumatology
DX: R76.8 Other specified abnormal immunological findings in serum (principal); Z79.899 Other long term (current) drug therapy
CPT/HCPCS: 81001; 82565; 82570; 84156; 84450; 84460; 85025; 85651; 86140; 86160; 86225

== ENCOUNTER → 2024-03-17 13:16 | Outpatient (CLI) | payer OTHER, SELFPAY | PROVIDERS: Family Provider Family Medicine; PCP Family Medicine; Visit Provider Family Medicine | DX: N39.0 Urinary tract infection, site not specified (principal); N10 Acute pyelonephritis | CPT/HCPCS: 87086 ==

== ENCOUNTER → 2024-03-29 10:15 | Outpatient (CLI) | payer OTHER, SELFPAY ==
[2024-03-29 19:34] LABS: Alanine Aminotransferase 25 IU/L (<35); Albumin 4.2 g/dL (3.5-5.0); Albumin Globulin Ratio 1.3 (1.0-2.8); Alkaline Phosphatase 57 U/L (38-126); Aspartate Aminotransferase 31 IU/L (14-36); BUN Creatinine Ratio 16.9 (6-22); Bilirubin Total 0.4 mg/dL (0.2-1.3); Blood Urea Nitrogen 21 mg/dL (7-17); Calcium 9.6 mg/dL (8.4-10.2); Carbon Dioxide 30 mmol/L (22-32); Chloride 104 mmol/L (98-107); Cholesterol 198 mg/dL (140-199); Estimated Glomerular Filt Rate 50 mL/min (>60); Globulin 3.2 g/dL (1.7-4.1); Glucose 104 mg/dL (70-100); HDL Cholesterol 56 mg/dL (40-60); HEMOLYSIS < 15 (0-50); LDL Cholesterol Calculated 113 mg/dL (<100); Potassium 4.4 mmol/L (3.4-5.1); Sodium 137 mmol/L (137-145); Total Protein 7.4 g/dL (6.3-8.2); Triglycerides 144 mg/dL (35-150)
[2024-03-29 19:43] LABS: Add Manual Diff / Slide Review NO; Basophils Absolute Auto 0 /uL (0-100); Eosinophils Absolute Auto 100 /uL (0-450); Eosinophils Percent Auto 4.1 % (2-4); Hematocrit 41.9 % (36-46); Hemoglobin 14.1 g/dL (12.0-16.0); Lymphocytes Absolute Auto 800 /uL (1100-4500); Lymphocytes Percent Auto 25.5 % (25-40); Mean Corpuscular HGB Conc 33.7 % (30-36); Mean Corpuscular Hemoglobin 30.8 PG (26-34); Mean Corpuscular Volume 91.3 fL (80-100); Monocytes Absolute Auto 200 /uL (0-900); Neutrophils Absolute Auto 2100 /uL (1500-7000); Neutrophils Percent Auto 62.4 % (50-75); Platelet Count 190 X10^3/uL (150-400); Red Blood Cell Count 4.58 X10^6/uL (4.0-5.2); Red Cell Distribution Width 13.9 % (11.6-14.8); White Blood Cell Count 3.3 X10^3/uL (4.5-11.0)
[2024-03-29 20:10] LABS: TSH w/ Reflex to FT4 0.53 uIU/mL (0.47-4.68)
[2024-03-29 20:29] LABS: Vitamin B12 197 pg/mL (239-931)
== END ==
PROVIDERS: Family Provider Family Medicine; PCP Family Medicine; Visit Provider Family Medicine
DX: R06.02 Shortness of breath (principal); M32.9 Systemic lupus erythematosus, unspecified; M79.7 Fibromyalgia; E53.8 Deficiency of other specified B group vitamins; Z79.899 Other long term (current) drug therapy; E03.9 Hypothyroidism, unspecified; N18.31 Chronic kidney disease, stage 3a; R00.2 Palpitations; I12.9 Hypertensive chronic kidney disease with stage 1 through stage 4 chronic kidney disease, or unspecified chronic kidney disease
CPT/HCPCS: 80053; 80061; 82607; 84443; 85025

== ENCOUNTER → 2024-06-07 13:33 | Outpatient (CLI) | payer OTHER, SELFPAY ==
[2024-06-07 19:13] LABS: Add Manual Diff / Slide Review NO; Basophils Absolute Auto 0 /uL (0-100); Basophils Percent Auto 0.9 % (0-2); Eosinophils Absolute Auto 100 /uL (0-450); Eosinophils Percent Auto 1.6 % (2-4); Hematocrit 41.8 % (36-46); Hemoglobin 14.2 g/dL (12.0-16.0); Lymphocytes Absolute Auto 1100 /uL (1100-4500); Lymphocytes Percent Auto 22.9 % (25-40); Mean Corpuscular HGB Conc 33.9 % (30-36); Mean Corpuscular Hemoglobin 32.2 PG (26-34); Mean Corpuscular Volume 95.1 fL (80-100); Monocytes Absolute Auto 200 /uL (0-900); Monocytes Percent Auto 4.8 % (3-14); Neutrophils Absolute Auto 3400 /uL (1500-7000); Neutrophils Percent Auto 69.8 % (50-75); Platelet Count 204 X10^3/uL (150-400); Red Cell Distribution Width 16.4 % (11.6-14.8); White Blood Cell Count 4.8 X10^3/uL (4.5-11.0)
[2024-06-07 19:46] LABS: Alanine Aminotransferase 39 IU/L (<35); Albumin 4.8 g/dL (3.5-5.0); Albumin Globulin Ratio 1.4 (1.0-2.8); Alkaline Phosphatase 64 U/L (38-126); Aspartate Aminotransferase 76 IU/L (14-36); BUN Creatinine Ratio 16.1 (6-22); Bilirubin Total 0.8 mg/dL (0.2-1.3); Blood Urea Nitrogen 22 mg/dL (7-17); C-Reactive Protein Quant < 0.5 mg/dL (<1.0); Calcium 9.8 mg/dL (8.4-10.2); Carbon Dioxide 28 mmol/L (22-32); Chloride 103 mmol/L (98-107); Estimated Glomerular Filt Rate 45 mL/min (>60); Globulin 3.4 g/dL (1.7-4.1); Glucose 88 mg/dL (70-100); HEMOLYSIS 27 (0-50); Potassium 4.2 mmol/L (3.4-5.1); Sodium 139 mmol/L (137-145); Total Protein 8.2 g/dL (6.3-8.2); Uric Acid 7.4 mg/dL (2.5-6.2)
[2024-06-07 20:33] LABS: Erythrocyte Sedimentation Rate 12 MM/HR (0-20)
== END ==
PROVIDERS: Family Provider Family Medicine; PCP Family Medicine; Visit Provider Internal Medicine Rheumatology
DX: Z79.899 Other long term (current) drug therapy (principal); R76.8 Other specified abnormal immunological findings in serum; M13.80 Other specified arthritis, unspecified site
CPT/HCPCS: 80053; 84550; 85025; 85651; 86140

== ENCOUNTER → 2024-07-07 14:28 | Outpatient (CLI) | payer OTHER, SELFPAY ==
[2024-07-07 19:36] LABS: Alanine Aminotransferase 31 IU/L (<35); Albumin 4.7 g/dL (3.5-5.0); Albumin Globulin Ratio 1.7 (1.0-2.8); Alkaline Phosphatase 67 U/L (38-126); Aspartate Aminotransferase 40 IU/L (14-36); Bilirubin Total 0.3 mg/dL (0.2-1.3); Bilirubin Unconjugated 0.3 mg/dL (0.0-1.1); Globulin 2.7 g/dL (1.7-4.1); HEMOLYSIS < 15 (0-50); Total Protein 7.4 g/dL (6.3-8.2)
== END ==
PROVIDERS: Internal Medicine Rheumatology; Family Provider Family Medicine; PCP Family Medicine
DX: R74.01 Elevation of levels of liver transaminase levels (principal); Z79.899 Other long term (current) drug therapy
CPT/HCPCS: 80076

== ENCOUNTER → 2024-09-06 14:02 | Outpatient (CLI) | payer OTHER, SELFPAY ==
[2024-09-06 18:52] LABS: Add Manual Diff / Slide Review NO; Basophils Absolute Auto 0 /uL (0-100); Basophils Percent Auto 0.9 % (0-2); Eosinophils Absolute Auto 200 /uL (0-450); Eosinophils Percent Auto 3.8 % (2-4); Hematocrit 41.3 % (36-46); Hemoglobin 14.5 g/dL (12.0-16.0); Lymphocytes Absolute Auto 1600 /uL (1100-4500); Mean Corpuscular HGB Conc 35.1 % (30-36); Mean Corpuscular Hemoglobin 33.5 PG (26-34); Mean Corpuscular Volume 95.4 fL (80-100); Monocytes Absolute Auto 200 /uL (0-900); Monocytes Percent Auto 3.9 % (3-14); Neutrophils Absolute Auto 2400 /uL (1500-7000); Neutrophils Percent Auto 55.4 % (50-75); Platelet Count 249 X10^3/uL (150-400); Red Blood Cell Count 4.33 X10^6/uL (4.0-5.2); Red Cell Distribution Width 14.3 % (11.6-14.8); White Blood Cell Count 4.3 X10^3/uL (4.5-11.0)
[2024-09-06 18:59] LABS: Alanine Aminotransferase 41 IU/L (<35); Albumin 4.7 g/dL (3.5-5.0); Albumin Globulin Ratio 1.6 (1.0-2.8); Alkaline Phosphatase 64 U/L (38-126); Aspartate Aminotransferase 52 IU/L (14-36); BUN Creatinine Ratio 14.2 (6-22); Bilirubin Total 0.5 mg/dL (0.2-1.3); Blood Urea Nitrogen 18 mg/dL (7-17); Calcium 9.8 mg/dL (8.4-10.2); Carbon Dioxide 28 mmol/L (22-32); Chloride 102 mmol/L (98-107); Estimated Glomerular Filt Rate 49 mL/min (>60); Glucose 103 mg/dL (70-99); HEMOLYSIS < 15 (0-50); Potassium 4.5 mmol/L (3.4-5.1); Sodium 139 mmol/L (137-145); Total Protein 7.7 g/dL (6.3-8.2)
[2024-09-06 19:08] LABS: Erythrocyte Sedimentation Rate 19 MM/HR (0-20)
[2024-09-08 04:36] LABS: CRP, High Sensitivity 1.32 mg/L (0.00-3.00)
[2024-09-08 04:36] LABS: Complement C3 133 mg/dL (82-167)
[2024-09-08 20:36] LABS: DNA (DS) Antibody <1 IU/mL (0-9)
== END ==
PROVIDERS: Family Provider Family Medicine; PCP Family Medicine; Visit Provider Internal Medicine Rheumatology
DX: M13.80 Other specified arthritis, unspecified site (principal); R76.8 Other specified abnormal immunological findings in serum; Z79.899 Other long term (current) drug therapy
CPT/HCPCS: 80053; 85025; 85651; 86140; 86160; 86225